=== PATIENT | male | born 1945 | race Caucasian/White ===

== ENCOUNTER 2017-11-02 21:41 | Emergency (ER) | payer MEDICARE, OTHER, SELFPAY ==
[2017-11-02 21:42] VITALS: BP 132/88; PULSE 66; RESP 14; TEMP 36.8; O2SAT 97; BMI 30.5
--- NOTE | 2017-11-02 22:41 | ED.VISSUMM ---
- ER Visit Summary Date of Service: 11/02/17 Chief Complaint: Right hip pain History of Present Illness: The patient is a 72 M who complains of right hip and groin pain. He has noted prior similar symptoms intermittently over the past 10 months. He describes a pinching or sharp pain in his right groin. His pain has been more constant over the past 5 hours. He took a Vicodin a couple of hours prior to presentation but has only had minimal relief. He required a wheelchair to get into the emergency department today. He currently rates his pain as 9 out of 10. It is worsened with movement. History of recent fall trauma or injury. He has no other complaints and no other recent illness. Physical Examination: Afebrile vitals are stable Heart regular rate and rhythm Lungs are clear Abdomen soft, nontender to palpation No back or flank tenderness Patient has no focal tenderness on palpation of the hip however he has significant pain with attempted internal rotation he is able to flex with some discomfort he has brisk capillary refill distally and normal sensation normal motor function distally Test Results: Right hip and pelvis x-rays show no fracture, mild degenerative changes Emergency Department Course and Treatment: She was treated with intramuscular Toradol and has had significant improvement on reevaluation. He was able to ambulate. He was advised to use anti-inflammatories at home and also has hydrocodone at home if needed for breakthrough pain. I did advise that he call his primary care physician for further outpatient follow-up. I explained of the possible need for further outpatient workup such as MRI. He understands return for new or worsening symptoms. All questions answered bedside. Patient family comfortable to plan and the patient was discharged. Treatment Plan: [] Disposition: Discharge Impression: Right groin pain This note was generated with [employer] dictation software. It may contain incorrect words, spelling, and punctuation that were not noted in review of the chart prior to signing ED Disposition - Plan for ED Patient: Chief Complaint: Lower Extremity Injury Referrals: Sudhir Carcamo MD [Primary Care Provider] -
--- NOTE | 2017-11-02 22:55 | RAD_ITS ---
STUDY: X-RAY - PELVIS AND RIGHT HIP REASON FOR EXAM: Male, 72 years old. Pain TECHNIQUE: Radiological exam, hip, unilateral, with pelvis when performed; 2 or 3 views. COMPARISON: None. FINDINGS: There is a non-specific bowel gas pattern. Normal visualized soft tissue structures. Normal bilateral iliac wings, sacroiliac joints and visualized sacrum. Normal bilateral superior and inferior pubic rami. Normal pubic symphysis. Normal bilateral ischial tuberosities. There are osteoarthritic changes of the femoral head with marginal osteophyte formation. There is osteoarthritic spur formation of the acetabular rim. There is mild articular joint space narrowing of the hip. RAD/Hip 2-3 Views with Pelvis IMPRESSION: Mild degenerative changes. No fracture. Electronically Signed: Arnulfo Mccloud DO at 23:20 EDT , Service support ,
[2017-11-02] MEDS: Ketorolac 60 MG/2 ML Vial IM (23:03)
--- NOTE | 2017-11-03 00:02 | ED.DEP ---
ED Disposition - Plan for ED Patient: Chief Complaint: Lower Extremity Injury Instructions: ED Strain Groin Referrals: Sudhir Carcamo MD [Primary Care Provider] -
[2017-11-03 00:14] VITALS: BP 129/74; PULSE 79; RESP 16; O2SAT 98
== END 2017-11-03 00:15 | disposition home or self-care (01) ==
LOC: ED 22:46
PROVIDERS: Emergency Provider Emergency Medicine; Family Provider Family Medicine; PCP Family Medicine
DX: R10.31 Right lower quadrant pain (principal); K21.9 Gastro-esophageal reflux disease without esophagitis; G47.33 Obstructive sleep apnea (adult) (pediatric); F32.9 Major depressive disorder, single episode, unspecified; Z79.899 Other long term (current) drug therapy
CPT/HCPCS: 73502; 96372; 99282

== ENCOUNTER → 2018-01-28 08:48 | Outpatient (CLI) | payer MEDICARE, OTHER, SELFPAY ==
[2018-01-28 10:39] LABS: ALB/GLOB Ratio 0.9 RATIO (0.9-2.4); AST(SGOT) 30 U/L (15-37); Alanine Aminotransfer ALT/SGPT 37 U/L (16-61); Albumin, Serum 3.8 g/dL (3.2-5.0); Alkaline Phosphatase 71 U/L (45-117); Anion Gap 8 (5-15); BUN 15 mg/dL (7-18); BUN/Creat Ratio 10.2 RATIO (10-20); Calcium,Total 8.7 mg/dL (8.5-10.1); Chloride 106 mmol/L (98-107); Cholesterol 204 mg/dL (200); Creatinine, Serum 1.47 mg/dL (0.70-1.30); EST Glomerular Filtration Rate 50 mL/min (>60); Est Glom Filt Rate - Afr Amer 61 mL/min (>60); Globulin 4.1 g/dL (2.2-4.2); Glucose 93 mg/dL (74-106); High Density Lipoprotein 38 mg/dL; Potassium 4.1 mmol/L (3.5-5.1); Protein, Total 7.9 g/dL (6.4-8.2); Sodium Level 143 mmol/L (136-145); Thyroid Stim Hormone (TSH) 1.65 uIU/mL (0.358-3.74); Triglycerides 295 mg/dL; Uric Acid 7.6 mg/dL (3.5-7.2); Very Low Density Lipoprotein 59 mg/dL (5-40)
[2018-01-28 12:16] LABS: Absolute Lymphocyte Count 1.91 X10^3/ul (0.83-4.51); Absolute Neutrophil Count 4.1 X10^3/uL (2.0-7.7); Basophil# 0.04 X10^3/uL; Basophil% 0.6 % (0-1); Eosinophil# 0.07 X10^3/uL; Eosinophils% 1.1 % (0-5); Hematocrit 44.8 % (40-54); Hemoglobin 15.4 g/dl (13.0-16.5); Lymphocyte # 1.91 X10^3/ul (4.0); Lymphocyte % 28.7 % (19-41); Mean Corp Hgb Conc 34.4 g/gl (32-36); Mean Corpuscular Hgb 32.6 pg (27.0-32.0); Mean Corpuscular Volume 94.7 fL (80-94); Mean Platelet Vol. 10.8 fl (6.2-12.0); Monocyte# 0.55 X10^3/uL; Monocyte% 8.3 % (0-10); Neutrophil # 4.07 X10^3/uL (2.7-7.7); Neutrophil % 61.1 % (47-70); Platelet Count 217 K/mm3 (150-450); RBC Distribution Width SD 43.6 fl (35.1-43.9); Red Blood Count 4.73 M/mm3 (4.6-6.2); White Blood Count 6.7 K/mm3 (4.4-11.0)
[2018-01-28 12:20] LABS: POSITIVE COUNT NO; POSITIVE DIFFERENTIAL NO; POSITIVE MORPHOLOGY NO
[2018-01-29 08:25] LABS: Vitamin B12 689 pg/mL (211-911)
== END ==
PROVIDERS: Family Provider Family Medicine; PCP Family Medicine; Visit Provider Family Medicine
DX: M10.9 Gout, unspecified (principal); N18.3 Chronic kidney disease, stage 3 (moderate); F41.8 Other specified anxiety disorders; E53.8 Deficiency of other specified B group vitamins; E78.5 Hyperlipidemia, unspecified
CPT/HCPCS: 36415; 80053; 80061; 82607; 84443; 84550; 85025

== ENCOUNTER → 2018-05-17 13:55 | Outpatient (CLI) | payer MEDICARE, OTHER, SELFPAY ==
--- NOTE | 2018-05-17 13:55 | CYST_PTH ---
PATIENT: KADIE PRADHAN LOC: ANGI U#:[id number] AGE/SX: 80/M ROOM: RE05/17/[address]: Dr. Tayler Patel MD : [id number] BED: DIS: SPEC #: [id number] RECD: 05/17/18 18:16 STATUS: KEZIA REParvin #: [id number] OTTO: 05/17/18 13:[address]: Tayler Patel DEPT: SURGICAL PATHOLOGY RECD BY: Sina Robertson ENTERED: 05/18/18 13:49 SP TYPE: Cyst OTHR DR: Dr. Sudhir Carcamo MD Tissues: Back, NOS Procedures: Surgery Specimen Level III HEADER OPERATION: Excision of cyst on back PRE-OP DIAGNOSIS: Cyst on back TISSUE SUBMITTED: Cyst on back MICROSCOPIC DIAGNOSIS Cyst on back, biopsy: Skin and underlying tissue with chronic inflammation and foreign body giant cell reaction, changes consistent with ruptured epidermal inclusion cyst. SJ:vaibhav 05/19/18 MICROSCOPIC DESCRIPTION Slides are reviewed. GROSS DESCRIPTION Received in fixative is one container labeled with the patient's name and designated cyst on back. The specimen consists of multiple pieces of hernández soft tissue that in aggregate measure 3 x 1 x 0.6 cm. One of the pieces also shows a piece of skin measuring 1.5 x 0.4 cm. The largest piece with skin is bisected. The entire specimen is submitted in one cassette. / PETE:vaibhav 05/18/18 TC:5 [facility]: [id number]
== END ==
PROVIDERS: Family Provider Family Medicine; PCP Family Medicine; Referring Provider Surgery; Visit Provider Surgery
DX: L72.9 Follicular cyst of the skin and subcutaneous tissue, unspecified (principal)
CPT/HCPCS: 88304

== ENCOUNTER → 2018-06-11 09:35 | Outpatient (CLI) | payer MEDICARE, OTHER, SELFPAY ==
--- NOTE | 2018-06-11 09:40 | RAD_ITS ---
STUDY: X-RAY - PELVIS AND RIGHT HIP REASON FOR EXAM: Male, 73 years old. Right groin pain for 2 days TECHNIQUE: Radiological exam, hip, unilateral, with pelvis when performed; 2 or 3 views. COMPARISON: January 02, 2018 right hip x-ray FINDINGS: There is a non-specific bowel gas pattern. Normal visualized soft tissue structures. There is visualized degenerative changes in the lumbar spine. There is nonspecific enthesopathy of the iliac crest. There is narrowing with cortical sclerosis and osteophyte formation of the sacroiliac joint consistent with degenerative osteoarthritic changes. Normal bilateral superior and inferior pubic rami. Normal pubic symphysis. Normal bilateral ischial tuberosities. There is minimal bilateral acetabular spurring. There is mild to moderate narrowing of the bilateral hip joints. RAD/HIP, UNI W/ Pelvis 2-3 Views IMPRESSION: Degenerative change. Stable since prior study. Electronically Signed: iLliana Clemens MD at 16:52 EDT Tel , Service support ,
== END ==
PROVIDERS: Family Provider Family Medicine; PCP Family Medicine; Referring Provider Family Medicine; Visit Provider Family Medicine
DX: M25.551 Pain in right hip (principal)
CPT/HCPCS: 73502

== ENCOUNTER → 2019-01-31 | Outpatient (CLI) | payer MEDICARE, OTHER, SELFPAY ==
[2019-01-31 12:15] LABS: Absolute Lymphocyte Count 2.09 X10^3/ul (0.83-4.51); Absolute Neutrophil Count 3.6 X10^3/uL (2.0-7.7); Basophil# 0.04 X10^3/uL; Basophil% 0.6 % (0-1); Eosinophils% 1.6 % (0-5); Hematocrit 45.5 % (40-54); Hemoglobin 15.5 g/dl (13.0-16.5); Lymphocyte # 2.09 X10^3/ul (4.0); Lymphocyte % 32.9 % (19-41); Mean Corp Hgb Conc 34.1 g/gl (32-36); Mean Corpuscular Hgb 32.3 pg (27.0-32.0); Mean Corpuscular Volume 94.8 fL (80-94); Mean Platelet Vol. 10.8 fl (6.2-12.0); Monocyte# 0.55 X10^3/uL; Monocyte% 8.7 % (0-10); Neutrophil # 3.55 X10^3/uL (2.7-7.7); Neutrophil % 55.9 % (47-70); Platelet Count 198 K/mm3 (150-450); RBC Distribution Width CV 13.4 % (11.6-14.6); RBC Distribution Width SD 46.1 fl (35.1-43.9); White Blood Count 6.4 K/mm3 (4.4-11.0)
[2019-01-31 12:23] LABS: POSITIVE COUNT NO; POSITIVE DIFFERENTIAL NO; POSITIVE MORPHOLOGY NO
[2019-01-31 13:00] LABS: Vitamin B12 550 pg/mL (211-911); Vitamin D,25 Hydroxy 26.4 ng/mL (29.95-100.01)
[2019-01-31 13:08] LABS: ALB/GLOB Ratio 0.9 RATIO (0.9-2.4); AST(SGOT) 27 U/L (15-37); Alanine Aminotransfer ALT/SGPT 37 U/L (16-61); Albumin, Serum 3.7 g/dL (3.2-5.0); Alkaline Phosphatase 81 U/L (45-117); Anion Gap 11 (5-15); BUN 13 mg/dL (7-18); BUN/Creat Ratio 9.8 RATIO (10-20); Calcium,Total 8.3 mg/dL (8.5-10.1); Chloride 104 mmol/L (98-107); Cholesterol 203 mg/dL (200); Creatinine, Serum 1.33 mg/dL (0.70-1.30); EST Glomerular Filtration Rate 56 mL/min (>60); Est Glom Filt Rate - Afr Amer 68 mL/min (>60); Globulin 4.1 g/dL (2.2-4.2); Glucose 81 mg/dL (74-106); High Density Lipoprotein 40 mg/dL; Potassium 3.8 mmol/L (3.5-5.1); Protein, Total 7.8 g/dL (6.4-8.2); Sodium Level 142 mmol/L (136-145); Thyroid Stim Hormone (TSH) 2.26 uIU/mL (0.358-3.74); Triglycerides 289 mg/dL; Uric Acid 7.8 mg/dL (3.5-7.2); Very Low Density Lipoprotein 58 mg/dL (5-40)
== END | disposition home or self-care (01) ==
PROVIDERS: Family Provider Family Medicine; PCP Family Medicine; Visit Provider Family Medicine
DX: M10.9 Gout, unspecified (principal); E53.8 Deficiency of other specified B group vitamins; N18.3 Chronic kidney disease, stage 3 (moderate)
CPT/HCPCS: 36415; 80053; 80061; 82306; 82607; 84443; 84550; 85025

== ENCOUNTER → 2019-02-18 | Outpatient (CLI) | payer MEDICARE, OTHER, SELFPAY ==
--- NOTE | 2019-02-18 14:43 | RAD_ITS ---
STUDY: X-RAY - LEFT SHOULDER REASON FOR EXAM: Male, 73 years old. Pain radiating pain TECHNIQUE: 4 view(s) of the shoulder. COMPARISON: None. FINDINGS: There is mild degenerative arthrosis of the glenohumeral articulation. There is degenerative arthrosis of the acromioclavicular joint without inferior osseous spur formation. Normal acromion. Normal humeral head and visualized proximal humerus. The soft tissue structures are unremarkable. There is a partially visualized tortuous aorta. RAD/Shoulder min 2 Views IMPRESSION: Degenerative change. No visualized acute fracture. Electronically Signed: Liliana Clemens MD at 22:33 EDT Tel , Service support ,
--- NOTE | 2019-02-18 14:43 | RAD_ITS ---
STUDY: X-RAY - CERVICAL SPINE REASON FOR EXAM: Male, 73 years old. Neck pain radiating to left shoulder and arm, numbness and tingling. No known injury. TECHNIQUE: 5 view(s) of the cervical spine were obtained. COMPARISON: None FINDINGS: There are degenerative changes of the anterior atlantoaxial articulation. Normal odontoid process. There is mild reversal of the normal cervical lordosis. There is multi-level endplate spondylosis, with posterior endplate osteophytes most prominent at C5-6 and C6-7. There is multi-level degenerative disc disease with multilevel disc space narrowing, most prominent at C5-6. There is hypertrophic degenerative arthroses of the cervical facet joints. Irbx-bs-uitoymuy osseous encroachment on the C5-6 intervertebral neural foramina. The prevertebral soft tissue structures are unremarkable. Incidental note of degenerative ossification in the nuchal ligament at the level C4-5 spinous processes. There is no demonstrated osseous destructive process or fracture of the cervical spine. RAD/Cerv Spine 4 or 5 Views IMPRESSION: Multilevel degenerative changes of the visualized cervical spine, as described. Electronically Signed: Russell Kay MD at 15:39 EDT , Service support ,
== END | disposition home or self-care (01) ==
PROVIDERS: Family Provider Family Medicine; PCP Family Medicine; Referring Provider Family Medicine; Visit Provider Family Medicine
DX: M54.12 Radiculopathy, cervical region (principal); M25.512 Pain in left shoulder
CPT/HCPCS: 72050; 73030

== ENCOUNTER → 2019-12-13 15:22 | Outpatient (CLI) | payer MEDICARE, OTHER, SELFPAY ==
--- NOTE | 2019-12-13 16:00 | MRI_ITS ---
STUDY: MRI LUMBAR SPINE WITHOUT CONTRAST REASON FOR EXAM: Male, 74 years old. LOW BACK PAIN, RT SI JOINT PAIN TECHNIQUE: Standardized fat and water weighted pulse sequences were obtained in the sagittal and axial planes. COMPARISON: None FINDINGS: T12-L1: Normal endplates. Normal disc height, hydration and morphology. Normal bilateral facet joints. Normal central canal and bilateral lateral recesses. Normal bilateral intervertebral neural foramina. Normal lumbar lordosis. There is no substantial scoliosis. Normal conus medullaris that terminates at L1 L1-2: Normal endplates. Normal disc height, desiccation and minor annular bulge. Normal bilateral facet joints. Normal central canal and bilateral lateral recesses. Normal bilateral intervertebral neural foramina. L2-3: Small Schmorl''s node with intramedullary bone marrow edema involving the superior endplate of L3. Normal disc height, desiccation and mild bulging disc osteophyte complex. Bilateral facet arthropathy and thickening of ligamenta flava... Normal central canal and bilateral lateral recesses. Moderate bilateral neuroforaminal stenosis L3-4: Normal endplates. Normal disc height, desiccation and minor annular bulge.. Bilateral facet arthropathy.. Normal central canal. Moderate bilateral recess and neuroforaminal stenosis exaggerated by shortened pedicles. L4-5: Normal endplates. Normal disc height, desiccation and minimal annular bulge with prominent left foraminal disc protrusion. Facet arthropathy and thickening of ligamenta flava.. Normal central canal and bilateral lateral recesses. Moderate right neuroforaminal stenosis and severe narrowing on the left exaggerated by shortened pedicles L5-S1: Degenerative endplate changes.. Normal disc height, desiccation and minor bulging disc osteophyte complex.. Bilateral facet arthropathy.. Normal central canal and bilateral lateral recesses. Moderate bilateral neuroforaminal stenosis exaggerated by shortened pedicles Normal visualized sacral ala. Normal visualized paraspinous soft tissue structures. MRI/Spine Lumbar (Routine) IMPRESSION: No evidence for acute fracture or other significant bony pathology.. Multilevel disc degeneration and spinal stenosis secondary to disc disease and bony hypertrophy most severe at L4-5 and L5-S1 exaggerated by shortened pedicles Electronically Signed: Sd Kimble MD at 16:25 EDT , Service support ,
== END ==
PROVIDERS: PCP Family Medicine; Referring Provider Anesthesiology Pain Medicine; Visit Provider Anesthesiology Pain Medicine
DX: M51.17 Intervertebral disc disorders with radiculopathy, lumbosacral region (principal)
CPT/HCPCS: 72148

== ENCOUNTER → 2020-02-23 08:58 | Outpatient (CLI) | payer MEDICARE, OTHER, SELFPAY ==
[2020-02-23 12:52] LABS: Absolute Lymphocyte Count 1.76 X10^3/uL (0.83-4.51); Absolute Neutrophil Count 3.8 X10^3/uL (2.0-7.7); Basophil# 0.05 X10^3/uL; Basophil% 0.8 % (0-1); Eosinophil# 0.08 X10^3/uL; Eosinophils% 1.3 % (0-5); Hemoglobin 14.9 g/dL (13.0-16.5); Lymphocyte # 1.76 X10^3/ul (4.0); Lymphocyte % 28.9 % (19-41); Mean Corp Hgb Conc 33.1 g/dL (32-36); Mean Corpuscular Hgb 31.8 pg (27.0-32.0); Mean Corpuscular Volume 96.2 fL (80-94); Monocyte# 0.45 X10^3/uL; Monocyte% 7.4 % (0-10); NRBC Flagged by Analyzer 0 % (0-5); Neutrophil # 3.75 X10^3/uL (2.7-7.7); Neutrophil % 61.4 % (47-70); Platelet Count 218 K/mm3 (150-450); RBC Distribution Width CV 13.2 % (11.6-14.6); Red Blood Count 4.68 M/mm3 (4.6-6.2); White Blood Count 6.1 K/mm3 (4.4-11.0)
[2020-02-23 13:14] LABS: AST(SGOT) 22 U/L (15-37); Alanine Aminotransfer ALT/SGPT 31 U/L (16-61); Albumin, Serum 3.9 g/dL (3.2-5.0); Alkaline Phosphatase 74 U/L (45-117); Anion Gap 7 (5-15); BUN 12 mg/dL (7-18); Calcium,Total 8.8 mg/dL (8.5-10.1); Chloride 105 mmol/L (98-107); Cholesterol 158 mg/dL (200); EST Glomerular Filtration Rate 49 mL/min (>60); Est Glom Filt Rate - Afr Amer 59 mL/min (>60); Globulin 3.8 g/dL (2.2-4.2); Glucose 88 mg/dL (74-106); High Density Lipoprotein 32 mg/dL; Potassium 4.2 mmol/L (3.5-5.1); Protein, Total 7.7 g/dL (6.4-8.2); Sodium Level 141 mmol/L (136-145); Triglycerides 210 mg/dL; Very Low Density Lipoprotein 42 mg/dL (5-40)
[2020-02-23 13:20] LABS: Vitamin B12 410 pg/mL (211-911); Vitamin D,25 Hydroxy 84.4 ng/mL
== END ==
PROVIDERS: PCP Family Medicine; Visit Provider Family Medicine
DX: E53.8 Deficiency of other specified B group vitamins (principal); N18.3 Chronic kidney disease, stage 3 (moderate); M10.9 Gout, unspecified
CPT/HCPCS: 36415; 80053; 80061; 82306; 82607; 84550; 85025

== ENCOUNTER 2020-05-30 19:52 | Observation (INO) | payer MEDICARE, OTHER, SELFPAY ==
[2020-05-30] VITALS (7 sets, daily range): BP systolic 121–158; BP diastolic 70–90; PULSE 53–63; RESP 13–18; TEMP 36.3–36.8; O2SAT 96–98; BMI 28.9; BMI 28.3
--- NOTE | 2020-05-30 20:00 | ED.DCSUM_ITS ---
History of Present Illness Chief Complaint: Chest Pain Onset: Today Narrative: 75-year-old male with past medical history of GERD and BPH presents with concern for chest pain. States it is left-sided. Describes it as aching. No relieving or worsening factors. States that he woke up this morning with an approximately 12 hours ago. States it is been intermittent. Denies any shortness of breath, nausea, vomiting, diaphoresis. Denies any fever, chills, cough. No history of PCI or stress testing. Patient not a smoker. Past Medical History - Allergies and Home Meds Allergies/Adverse Reactions: Allergies meperidine HCl [From Demerol] Allergy (Verified 05/30/20 19:57) Anaphylaxis Past Medical History: - - BPH and GERD Lives: Spouse/ Significant Other Smoking Status: Never smoker Alcohol: None Drugs: None Review of Systems General: Denies: Chills, Fever, Sweats Eyes: Denies: Visual changes - bilaterally, Diplopia ENT: Denies: Rhinorrhea, Sore throat Cardiovascular: Reports: Chest pain. Denies: Palpitations Respiratory: Denies: Dyspnea, Cough, Dyspnea on exertion Gastrointestinal: Denies: Abdominal pain, Nausea, Vomiting, Diarrhea, Melena, Hematochezia Genitourinary: Denies: Dysuria, Hematuria, Frequency Musculoskeletal: Denies: Back pain, Extremity Pain Skin: Denies: Rash, Wounds Neurological: Denies: Headache, Weakness, Numbness Physical Exam Vital Signs/Narrative: Vital Signs Temp Pulse Resp BP Pulse Ox 05/30/20 19:52 97.3 F L 60 16 158/90 H 97 Inital Vital Signs reviewed: Yes General: Well nourished, Well developed, No Acute Distress Head: Normocephalic, Atraumatic Eyes: Perrl, EOMI ENT: Moist mucous membranes, No rhinorrhea Neck: Supple, Nontender Cardiovascular: Regular rate, Regular rhythm, No murmurs Respiratory: No distress, CTA bilaterally, Chest nontender Abdomen: Soft, Nontender, Nondistended, Normal bowel sounds Back: Nontender, Normal Inspection Extremities: Nontender, No edema Skin: Normal color, No rash Neurological: Alert, Oriented x3, Cranial nerves II-XII grossly intact, Normal Strength, Normal Sensation Psychological: Normal affect, Normal Mood Diagnostic/Tx/Re-eval Chest X-Ray - ED: 1 View, Normal Clinical Impression(s) from Imaging Studies Chest X-Ray 05/30/20 20:14 IMPRESSION: Normal x-ray examination of the chest. Electronically Signed: Romero Beard MD at 20:27 EDT Tel , Service support , Laboratory Data 05/30/20 05/30/20 19:53 19:53 WBC 6.9 RBC 4.69 Hgb 15.1 Hct 44.5 MCV 94.9 H MCH 32.2 H MCHC 33.9 RDW Std Deviation 43.0 RDW Coeff of Jake 12.5 Plt Count 224 MPV 10.0 Immature Gran % (Auto) 0.300 Neut % (Auto) 51.9 Lymph % (Auto) 35.0 Alexander % (Auto) 9.3 Eos % (Auto) 2.6 Baso % (Auto) 0.9 Absolute Neuts (auto) 3.6 Absolute Lymphs (auto) 2.42 Nucleated RBC % 0 Sodium 142 Potassium 4.0 Chloride 107 Carbon Dioxide 28.0 Anion Gap 7 BUN 15 Creatinine 1.53 H Estim Creat Clear Calc 46.49 Est GFR (MDRD) Af Amer 58 L Est GFR (MDRD) Non-Af 48 L BUN/Creatinine Ratio 9.8 L Glucose 96 Calcium 8.7 Magnesium 2.2 Troponin I < 0.015 - Rhythm Strip Rhythm Strip: Sinus Rhythm Rate: 60 Ectopy: PVC(s) - EKG Initial EKG Interpretation: Sinus Rhythm - Normal sinus rhythm at 60 bpm. TN interval of 158 ms. QTC of [address] changes. PVC. Right bundle branch block. - Medical Decision Making Patient appears well nontoxic. Vital signs within normal limits. EKG nonischemic. Troponin negative. Chest x-ray negative. However patient did have resolution of his chest pain with 2 sublingual nitroglycerin. Patient will be admitted for further treatment and observation. Patient given aspirin. Admitted in stable condition. Impression: 1. Chest pain ED Disposition - Plan for ED Patient: Disposition: Acute Care [facility]
--- NOTE | 2020-05-30 20:01 | EKG12_ITS ---
Test Reason : AM EKG Blood Pressure : / mmHG Vent. Rate : 055 BPM Atrial Rate : 055 BPM P-R Int : 172 ms QRS Dur : 110 ms QT Int : 430 ms P-R-T Axes : 069 030 062 degrees QTc Int : 411 ms Sinus bradycardia Nonspecific T wave abnormality Abnormal ECG When compared with ECG of 30-MAY-2020 22:05, MANUAL COMPARISON REQUIRED, DATA IS UNCONFIRMED Confirmed by MORENO CUADRA, BRIDGET ([id number]), multimedia editor WICHO TADEO ([id number]) on 06/04/2020 9:03:17 A M Referred By: MARIBEL Confirmed By:BUFFY MAYER MD
[2020-05-30 20:07] LABS: Absolute Lymphocyte Count 2.42 X10^3/uL (0.83-4.51); Absolute Neutrophil Count 3.6 X10^3/uL (2.0-7.7); Basophil# 0.06 X10^3/uL; Basophil% 0.9 % (0-1); Eosinophil# 0.18 X10^3/uL; Eosinophils% 2.6 % (0-5); Hematocrit 44.5 % (40-54); Hemoglobin 15.1 g/dL (13.0-16.5); Lymphocyte # 2.42 X10^3/ul (4.0); Mean Corp Hgb Conc 33.9 g/dL (32-36); Mean Corpuscular Hgb 32.2 pg (27.0-32.0); Mean Corpuscular Volume 94.9 fL (80-94); Monocyte# 0.64 X10^3/uL; Monocyte% 9.3 % (0-10); NRBC Flagged by Analyzer 0 % (0-5); Neutrophil # 3.59 X10^3/uL (2.7-7.7); Neutrophil % 51.9 % (47-70); Platelet Count 224 K/mm3 (150-450); RBC Distribution Width CV 12.5 % (11.6-14.6); Red Blood Count 4.69 M/mm3 (4.6-6.2); White Blood Count 6.9 K/mm3 (4.4-11.0)
[2020-05-30] MEDS: Aspirin 81 MG TAB.CHEW 324 MG PO (20:10)
[2020-05-30] MEDS: Nitroglycerin SL (ED/IMG/CATH) 0.4 MG TABLET SUBLINGUAL ×2 (20:11→20:16)
--- NOTE | 2020-05-30 20:14 | RAD_ITS ---
STUDY: X-RAY CHEST REASON FOR EXAM: Male, 75 years old. CHEST PAIN AND LEFT SHOULDER PAIN TECHNIQUE: Single frontal view of the chest. COMPARISON: None. FINDINGS: The lungs are clear and expanded. There is no demonstrated pleural abnormality. Normal size heart. Normal mediastinum and whit. Normal visualized pulmonary arteries. Normal visualized aortic arch and descending thoracic aorta. Normal visualized thoracic spine. Normal visualized ribs, clavicles, and shoulders. There is no demonstrated abnormality of the visualized soft tissue structures of the upper abdomen. RAD/Chest 1 View (Portable) IMPRESSION: Normal x-ray examination of the chest. Electronically Signed: Romero Beard MD at 20:27 EDT Tel , Service support ,
[2020-05-30 20:20] LABS: Anion Gap 7 (5-15); BUN 15 mg/dL (7-18); BUN/Creat Ratio 9.8 RATIO (10-20); Calcium,Total 8.7 mg/dL (8.5-10.1); Chloride 107 mmol/L (98-107); Creatinine, Serum 1.53 mg/dL (0.70-1.30); EST Glomerular Filtration Rate 48 mL/min (>60); Est Glom Filt Rate - Afr Amer 58 mL/min (>60); Estimated Creatinine Clearance 46.49 ml/min; Glucose 96 mg/dL (74-106); Magnesium 2.2 mg/dL (1.6-2.6); Sodium Level 142 mmol/L (136-145)
--- NOTE | 2020-05-30 22:10 | EKG12_ITS ---
Test Reason : CP ADMISSION Blood Pressure : / mmHG Vent. Rate : 049 BPM Atrial Rate : 049 BPM P-R Int : 172 ms QRS Dur : 108 ms QT Int : 458 ms P-R-T Axes : 055 031 029 degrees QTc Int : 413 ms Sinus bradycardia Otherwise normal ECG When compared with ECG of 19-FEB-2015 07:58, No significant change was found Confirmed by MORENO CUADRA, BRIDGET ([id number]), editorial assistant WICHO TADEO ([id number]) on 06/04/2020 9:04:43 A M Referred By: MARIBEL Confirmed By:BUFFY MAYER MD
--- NOTE | 2020-05-30 22:27 | PCM.HP.STD ---
Problem List (1) Chest pain Status: Acute History of Present Illness Date of Admission: 05/30/20 Chief Complaint: chest pain The patient is a 75 year old M presents with left shoulder pain. Patient woke up this morning. Full of his left shoulder but also his left upper chest. Would wax and wane but later in the day, patient appeared very ashen and did not feel well. His was concerned and sent him to the emergency room. In the emergency room, patient underwent a work-up which showed no evidence of any cardiac ischemia. However, given his story, it was felt best to bring the patient in for further cardiac evaluation. Patient has never had pain like this before. [] Past Medical History Medical History: Medical History (Last Updated 05/30/20 @ 22:[address] Kun Gupta DO) BPH (benign prostatic hyperplasia) N40.0 Depression F32.9 GERD (gastroesophageal reflux disease) K21.9 Allergies meperidine HCl [From Demerol] Allergy (Verified 05/30/20 19:57) Anaphylaxis Home Medications: Ambulatory Orders Medication Instructions Recorded Cyanocobalamin [Vitamin B12] 1,000 mcg PO DAILY@0800 11/02/17 Meloxicam [Mobic] 7.5 mg PO DAILY 11/02/17 Omeprazole [Prilosec] 20 mg PO DAILY 11/02/17 Cholecalciferol (VIT D3) [Vitamin 1,000 unit PO DAILY 05/30/20 D] Tamsulosin HCl [Flomax] 0.4 mg PO DAILY 05/30/20 Surgical History: Surgical History (Last Reviewed 05/30/20 @ 22:[address] Kun Gupta DO) H/O knee surgery Z98.890 H/O rhinoplasty Z98.890 h/o carpal tunnel release Lives: Spouse/ Significant Other Smoking Status: Never smoker Alcohol: None Drugs: None - *Family History Maternal Family History: Family History (Last Reviewed 05/30/20 @ 22:[address] Kun Gupta DO) Mother Breast cancer CAD (coronary artery disease) CVA (cerebral vascular accident) Father CVA (cerebral vascular accident) Son Breast cancer Review of Systems Constitutional: Denies: Anorexia, Chills, Fever Eyes: Denies: Blurred vision, Double vision HEENT: Denies: Head Aches, Sinus Congestion, Sinus Drainage Cardiovascular: Denies: Chest Pain, Palpitations Respiratory: Denies: Cough, Shortness of breath at rest, Sputum production Gastrointestinal: Denies: Abdominal Pain, Nausea, Vomiting Genitourinary: Denies: Dysuria Musculoskeletal: Denies: Joint Pain, Joint Tenderness Hematologic/ Lymphatic: Denies: Easy Bruising, Easy Bleeding, Hx of blood clot Comment: All review of systems were negative except as mentioned above in the history of present illness and the other review of systems. VTE Information - Inpt Only VTE Present on Admission: No VTE Mechan Device Prophylaxis: None VTE Pharm Prophylaxis ordered?: No Reason prophylaxis not ordered:: Treatment Not Indicated Patient Problems: Active and Suspected Problems (Last Updated 05/30/20 @ 22:[address] Kun Gupta, DO) Chest pain (Acute) - Physical Exam Vitals/I&O's: Vital Signs Temp Pulse Resp BP Pulse Ox 36.8 C 53 L 18 121/71 H 97 05/30/20 21:56 05/30/20 21:56 05/30/20 21:56 05/30/20 21:56 05/30/20 21:56 Oxygen Delivery Method Blow-by Weight: 96.6 kg Body Mass Index (BMI) 28.3 General: Alert, Cooperative, No apparent distress HEENT: Atraumatic, Normocephalic Oral: Moist Mucosa, No Gingival or Mucosal Lesions/ Ulcerations Neck: No Nodes, Thyroid Normal Size and Texture Lungs: Clear to auscultation, Normal air movement, No rhonchi, No wheeze, No rales Cardiovascular: Regular rate, Regular Rhythm, Normal S1, Normal S2, No murmurs Abdomen: Bowel Sounds Present, Soft, Non Tender, Non-Distended, No Hepato-splenomegaly Extremities: No edema, No Calf Tenderness Skin: No rashes, No breakdown Musculoskeletal: - - Full range of motion of the left upper extremity. Empty can test was negative bilaterally. Patient able to AB duct his left upper extremity past 90 degrees. Psych/Mental Status: Normal Affect, Appropriate Laboratory Results 05/30/20 19:53: WBC 6.9, RBC 4.69, Hgb 15.1, Hct 44.5, MCV 94.9 H, MCH 32.2 H, MCHC 33.9, RDW Std Deviation 43.0, RDW Coeff of Jake 12.5, Plt Count 224, MPV 10.0, Immature Gran % (Auto) 0.300, Neut % (Auto) 51.9, Lymph % (Auto) 35.0, [place] % (Auto) 9.3, Eos % (Auto) 2.6, Baso % (Auto) 0.9, Absolute Neuts (auto) 3.6, Absolute Lymphs (auto) 2.42, Nucleated RBC % 0 05/30/20 19:53: Sodium 142, Potassium 4.0, Chloride 107, Carbon Dioxide 28.0, Anion Gap 7, BUN 15, Creatinine 1.53 H, Estim Creat Clear Calc 46.49, Est GFR (MDRD) Af Amer 58 L, Est GFR (MDRD) Non-Af 48 L, BUN/Creatinine Ratio 9.8 L, Glucose 96, Calcium 8.7, Magnesium 2.2, Troponin I < 0.015 EKG reviewed and showed normal sinus rhythm. Chest x-ray reviewed and showed normal airways without any infiltrate or pulmonary edema. Current Medications Sodium Chloride () 250 mls @ 15 mls/hr IV .[id number] PRN PRN Reason: Saline Flush Sodium Chloride () 250 mls @ 15 mls/hr IV .[id number] PRN PRN Reason: Additional IVPB Infusion Nitroglycerin (Nitroglycerin Sl (Ed/Img/Cath) 0.4 Mg Tablet) 0.4 mg SUBLINGUAL Q5M PRN PRN Reason: Chest pain Last Admin: 05/30/20 20:16 Dose: 0.4 mg Documented by: Sodium Chloride (0.9% Saline Lock 10 Ml Syringe) 10 - 40 ml IV UD PRN PRN Reason: SALINE FLUSH Assessment/Plan All Active Problems (Last Updated 05/30/20 @ 22:[address] Kun Gupta, DO) Chest pain (Acute) 1. Chest pain: AIXA score of 2. De Los Santos score of 122 which equates to an in-hospital at 1.7%. Plan is to bring the patient and perform a treadmill stress echocardiogram and follow that up. In the meantime, check troponins and continue with aspirin. Patient did receive aspirin in the emergency room. Based on the results of the stress test either patient be discharged or will have a cardiology consultation. 2. Chronic kidney disease stage III: Recommend outpatient follow-up with nephrology. Creatinine peers to be stable. 3. VTE prophylaxis: Low risk as patient is observation status at this point. 4. Advanced care planning: Discussed with the patient. Patient wished to be full CODE STATUS. OBSV E&M: [id number] Initial observation care L2
--- NOTE | 2020-05-30 22:32 | EKG12_ITS ---
Test Reason : CP Blood Pressure : / mmHG Vent. Rate : 060 BPM Atrial Rate : 060 BPM P-R Int : 158 ms QRS Dur : 106 ms QT Int : 418 ms P-R-T Axes : 067 039 049 degrees QTc Int : 418 ms Sinus rhythm with occasional Premature ventricular complexes Incomplete right bundle branch block Borderline ECG Confirmed by JEANA CUADRA, MEME ([id number]), technical editor WICHO TADEO ([id number]) on 06/05/2020 8:12:02 AM Referred By: TAMIR Confirmed By:MEME HILLS MD
[2020-05-31 03:30] VITALS: BP 127/71; PULSE 55; RESP 18; TEMP 36.4; O2SAT 96
[2020-05-31 05:14] VITALS: PULSE 49
--- NOTE | 2020-05-31 05:55 | STEWCON_ITS ---
Reason For Study: Chest Pain Stress Results Protocol: Delvin Protocol WITH DEFINITY Maximum Predicted HR: 146 bpm Target HR: 124 bpm % Maximum Predicted HR: 95 % DurationHeart Rate Stage (mm:ss) (bpm) BP Comment Baseline 49 134/70No Chest Pain; 5 ML Diluted Definity Delvin Protocol Stage I 3:00 93 150/72No Chest Pain Delvin Protocol Stage II 3:00 106 154/68No Chest Pain Delvin Protocol Stage III 3:00 134 174/62No Chest Pain; Mild Dyspnea Delvin Protocol Stage IV 0:20 139 / No Chest Pain; Mild Dyspnea Recovery 77 124/72No Chest Pain Stress Duration: 9:20 mm:ss Maximum Stress HR: 139 bpm METS: 11 Baseline Echocardiogram Findings The estimated ejection fraction is 60 %. Post stress EF is 70%. Stress Echo Wall motion Data Resting WM Intermediate WM Stress WM Resting Wall Motion Wall Motion Stress No regional wall motion No regional wall motion abnormalities noted. abnormalities noted. EKG Data The baseline ECG displays normal sinus rhythm. No significant ischemic changes. Symptoms with Stress The patient experinced no chest pain . Interpretation Summary The estimated ejection fraction is 60 %. Stress echo is negative for stress induced CP or EKG or echocardiographic changes of ischemia. Functional capacity is excellent for age Ordering Physician: Kun Gupta Referring Physician: Luke Christensen M.D. Performed By: Bonita Chu, RDCS, RVT
[2020-05-31] MEDS: Aspirin E.C. 81 MG Tablet PO (06:07)
--- NOTE | 2020-05-31 06:41 | NURSING ---
Patient called out to tell this nurse he was having chest pain. He asked for nitro. He rated the pain as he said low on the pain scale 2 or 3. States pain is like a pulled muscle feeling. Charge nurse in the room at this time explained with his stress test we cant give nitro pt verbalised understanding. Instructed to call if it gets worse. Offered Morphine pt declined.
[2020-05-31 06:52] LABS: Anion Gap 5 (5-15); BUN 16 mg/dL (7-18); BUN/Creat Ratio 12.1 RATIO (10-20); Calcium,Total 8.5 mg/dL (8.5-10.1); Chloride 108 mmol/L (98-107); Cholesterol 183 mg/dL (200); Creatinine, Serum 1.32 mg/dL (0.70-1.30); EST Glomerular Filtration Rate 56 mL/min (>60); Est Glom Filt Rate - Afr Amer 68 mL/min (>60); Estimated Creatinine Clearance 53.89 ml/min; Glucose 94 mg/dL (74-106); High Density Lipoprotein 38 mg/dL; Potassium 3.7 mmol/L (3.5-5.1); Sodium Level 139 mmol/L (136-145); Triglycerides 279 mg/dL; Very Low Density Lipoprotein 56 mg/dL (5-40)
[2020-05-31 08:56] VITALS: PULSE 55
[2020-05-31 10:16] VITALS: BP 134/82; PULSE 58; RESP 18; TEMP 36.8; O2SAT 98
[2020-05-31 14:59] VITALS: PULSE 58
--- NOTE | 2020-05-31 16:23 | DCINST_ITS ---
- Discharge Diagnoses Current Active Problems: Current Active and Chronic Problems (Last Updated 05/30/20 @ 22:[address] Kun Gupta, DO) Chest pain (Acute) You will use the following diet at home:: No restrictions Your food should be the consistency of: Regular Your liquids should be the consistency of: Regular/Thin Discharge Activity: Return to Normal Activity Weight Bearing Status: Full weight bearing Allergies/Adverse Reactions: Allergies meperidine HCl [From Demerol] Allergy (Verified 05/30/20 19:57) Anaphylaxis Medications to take at Discharge Cyanocobalamin [Vitamin B12] 1,000 mcg PO DAILY@0800 11/02/17 Meloxicam [Mobic] 7.5 mg PO DAILY 11/02/17 Omeprazole [Prilosec] 20 mg PO DAILY 11/02/17 Cholecalciferol (VIT D3) [Vitamin D3] 1,000 unit PO DAILY 05/30/20 Tamsulosin HCl [Flomax] 0.4 mg PO DAILY 05/30/20 Primary Care Physician: Sudhir Carcamo MD [Primary Care Provider] - Please follow up with your Primary Care Physician in: as scheduled Test Results: Test results from this visit will be discussed in further detail at your follow- up appointment, if applicable.
[2020-05-31 16:34] VITALS: BP 140/90; PULSE 59; RESP 18; TEMP 36.8; O2SAT 95
--- NOTE | 2020-06-01 08:03 | PCM.DC.SUM ---
Discharge Date and Diagnosis - Problem List Patient Problems: Active and Suspected Problems (Last Updated 05/30/20 @ 22:[address] Kun Gupta, ) Chest pain (Acute) Date of Admission: 05/30/20 Date of Discharge: 05/31/20 - Primary Discharge Diagnosis Acute Problems: Active Problems (Last Updated 05/30/20 @ 22:[address] Kun Gupta, ) #1 musculoskeletal chest pain #2 benign prostatic hypertrophy #3 GERD #4 degenerative disc disease of the lumbar spine Hospital Course and Treatment Operations: None Procedures: - - Stress echocardiogram Summary of Care Provided: The patient is a 75 year old M seen in the emergency room at [facility] with a chief complaint of left upper chest discomfort, patient had the chest discomfort for approximately 12 hours, he denied any shortness of breath or nausea. Patient had no history of coronary artery disease. Work-up in the emergency room included an EKG which showed a normal sinus rhythm at 60, troponin was negative, chest x-ray was negative. Patient was given 2 sublingual nitroglycerin which relieved his chest discomfort. Patient was placed into observation status on PCU, cardiac enzymes were cycled and these remain normal. Patient underwent a stress echocardiogram on 05/31/20 which was negative for ischemia, patient had a normal EF. On 05/31/2020, patient was seen and examined: On examination he appeared in good health and spirits. Vital signs as documented. Skin warm and dry and without overt rashes. Neck without JVD, neck was supple, trachea midline, thyroid was normal. Lungs clear bilaterally, normal air movement was noted. Heart exam notable for regular rhythm, normal sounds and absence of murmurs, rubs or gallops. Abdomen unremarkable and without evidence of organomegaly, masses, or abdominal aortic enlargement. Bowel sounds are present, abdomen is not distended. Extremities nonedematous, no cyanosis was noted, no clubbing was noted. Neuro: Cranial nerves II through XII are grossly intact, no focal motor deficits were noted, sensation to light touch and pinprick intact, motor exam 5/5 throughout. Psych: Patient is alert and oriented x3, he does not appear anxious or depressed, he does not appear agitated. Patient was discharged home in stable condition on 05/31/2020. Patient Problems: Active and Suspected Problems (Last Updated 10/14/20 @ 22:[address] Kun Gupta, DO) Chest pain (Acute) - Physical Exam Vitals/I&O's: Vital Signs Temp Pulse Resp BP Pulse Ox 98.3 F 59 L 18 140/90 H 95 05/31/20 16:34 05/31/20 16:34 05/31/20 16:34 05/31/20 16:34 05/31/20 16:34 Oxygen Delivery Method Room Air Weight: 96.6 kg Body Mass Index (BMI) 28.3 Intake and Output for Last 24 Hours 05/30/20 05/31/20 06/01/20 23:59 23:59 23:59 Intake Total 280 / 280 Balance 280 / 280 Discharge Activity: Return to Normal Activity Weight Bearing Status: Full weight bearing Home Medications: Medications to take at Discharge Cyanocobalamin [Vitamin B12] 1,000 mcg PO DAILY@0800 11/02/17 Meloxicam [Mobic] 7.5 mg PO DAILY 11/02/17 Omeprazole [Prilosec] 20 mg PO DAILY 11/02/17 Cholecalciferol (VIT D3) [Vitamin D3] 1,000 unit PO DAILY 05/30/20 Tamsulosin HCl [Flomax] 0.4 mg PO DAILY 05/30/20 Primary Care Physician: Sudhir Carcamo MD [Primary Care Provider] - Please follow up with your Primary Care Physician in: as scheduled Disposition: Home Minutes spent on discharge:: 30 Patient Condition:: Stable Medical Necessity - Tobacco Use Smoking Status: Never smoker Meaningful Use Info Meaningful Use Diagnoses (Choose all that apply): None applicable OBSV E&M: 46519 Observation care discharge
== END 2020-05-31 16:23 | disposition home or self-care (01) ==
LOC: ED 20:25 → PCU 22:29
PROVIDERS: Emergency Provider Emergency Medicine; PCP Family Medicine; Visit Provider Internal Medicine
DX: R07.89 Other chest pain (principal); K21.9 Gastro-esophageal reflux disease without esophagitis; N40.0 Benign prostatic hyperplasia without lower urinary tract symptoms; Z79.899 Other long term (current) drug therapy; M25.512 Pain in left shoulder; N18.30 Chronic kidney disease, stage 3 unspecified; M51.36 Other intervertebral disc degeneration, lumbar region
CPT/HCPCS: 36415; 71045; 80048; 80061; 83735; 84484; 85025; 93005; 93017; 93350; 94760; 99218; 99283; 99285; Q9957; A4216; C8928; G0378

== ENCOUNTER → 2020-07-11 17:36 | Outpatient (CLI) | payer MEDICARE, OTHER, SELFPAY ==
[2020-05-30 21:44] VITALS: BMI 28.3
== END ==
PROVIDERS: PCP Family Medicine; Referring Provider Family Medicine; Visit Provider Family Medicine
DX: Z03.818 Encounter for observation for suspected exposure to other biological agents ruled out (principal)
CPT/HCPCS: 87635; C9803; U0003

== ENCOUNTER → 2020-08-01 13:20 | Outpatient (CLI) | payer MEDICARE, OTHER, SELFPAY ==
[2020-05-30 21:44] VITALS: BMI 28.3
[2020-08-01 15:26] LABS: Absolute Lymphocyte Count 1.91 X10^3/uL (0.83-4.51); Basophil# 0.05 X10^3/uL; Basophil% 0.7 % (0-1); Eosinophil# 0.16 X10^3/uL; Eosinophils% 2.4 % (0-5); Hemoglobin 15.4 g/dL (13.0-16.5); Lymphocyte # 1.91 X10^3/ul (4.0); Lymphocyte % 28.4 % (19-41); Mean Corp Hgb Conc 32.8 g/dL (32-36); Mean Corpuscular Hgb 30.9 pg (27.0-32.0); Mean Corpuscular Volume 94.4 fL (80-94); Mean Platelet Vol. 10.4 fl (6.2-12.0); Monocyte# 0.59 X10^3/uL; Monocyte% 8.8 % (0-10); NRBC Flagged by Analyzer 0 % (0-5); Neutrophil # 3.97 X10^3/uL (2.7-7.7); Neutrophil % 59.1 % (47-70); Platelet Count 202 K/mm3 (150-450); RBC Distribution Width CV 12.4 % (11.6-14.6); Red Blood Count 4.98 M/mm3 (4.6-6.2); White Blood Count 6.7 K/mm3 (4.4-11.0)
[2020-08-01 15:44] LABS: ALB/GLOB Ratio 1.1 RATIO (0.9-2.4); AST(SGOT) 17 U/L (15-37); Alanine Aminotransfer ALT/SGPT 31 U/L (16-61); Alkaline Phosphatase 80 U/L (45-117); Anion Gap 4 (5-15); BUN 14 mg/dL (7-18); BUN/Creat Ratio 9.7 RATIO (10-20); Calcium,Total 8.9 mg/dL (8.5-10.1); Chloride 104 mmol/L (98-107); Creatinine, Serum 1.45 mg/dL (0.70-1.30); EST Glomerular Filtration Rate 51 mL/min (>60); Est Glom Filt Rate - Afr Amer 61 mL/min (>60); Globulin 3.8 g/dL (2.2-4.2); Glucose 82 mg/dL (74-106); Potassium 4.2 mmol/L (3.5-5.1); Protein, Total 7.8 g/dL (6.4-8.2); Sodium Level 138 mmol/L (136-145); T4 Free Direct 1.06 ng/dL (0.76-1.46); Thyroid Stim Hormone (TSH) 1.88 uIU/mL (0.358-3.74)
[2020-08-01 15:59] LABS: Vitamin B12 1323 pg/mL (211-911); Vitamin D,25 Hydroxy 57.6 ng/mL
== END ==
PROVIDERS: PCP Family Medicine; Visit Provider Family Medicine
DX: E53.8 Deficiency of other specified B group vitamins (principal); R53.83 Other fatigue; E55.9 Vitamin D deficiency, unspecified; N18.30 Chronic kidney disease, stage 3 unspecified
CPT/HCPCS: 36415; 80053; 82306; 82607; 84439; 84443; 85025

== ENCOUNTER → 2021-06-03 | Outpatient (CLI) | payer MEDICARE, OTHER, SELFPAY | END | disposition home or self-care (01) | LOC: LABSPEC 06-04 09:04 | PROVIDERS: PCP Family Medicine; Referring Provider Family Medicine; Visit Provider Family Medicine | DX: Z20.828 Contact with and (suspected) exposure to other viral communicable diseases (principal) | CPT/HCPCS: 87635; U0005; U0003 ==

== ENCOUNTER 2021-08-30 13:10 | Outpatient (CLI) | payer MEDICARE, OTHER, SELFPAY ==
--- NOTE | 2021-08-30 13:45 | MRI_ITS ---
STUDY: MRI RIGHT KNEE REASON FOR EXAM: Male, 76 years old. Right knee pain TECHNIQUE: Standardized fat and water weighted pulse sequences were obtained in all 3 orthogonal planes. COMPARISON: None. FINDINGS: High-grade intrasubstance degenerative and horizontal tearing is present in the body of the medial meniscus and throughout the posterior horn of medial meniscus. Normal anterior horn. There is diffuse, less than 50% thickness articular cartilage loss of the medial femorotibial compartment. Normal medial femoral condyle and tibial plateau. A lobular ganglion cyst originating from the posterior aspect of the medial femoral condyle is partially herniated through the joint capsule resulting in a small component of the ganglion cyst measuring 1.91 cm abutting the anterior aspect of the medial gastrocnemius muscle. Normal medial collateral ligamentous complex (MCL). Normal distal semimembranosus, gracilis and semitendinosus tendons. There is mild intra-substance myxoid degeneration of the posterior horn of the lateral meniscus, but without a demonstrated meniscal tear. Normal anterior horn and body of the lateral meniscus. Normal hyaline cartilage of the lateral femorotibial compartment. Normal lateral femoral condyle and tibial plateau. Normal proximal tibiofibular articulation. Normal lateral collateral (fibular) ligament. Normal popliteus tendon. Normal biceps femoris tendon. Normal anterior cruciate ligament (ACL). Normal posterior cruciate ligament (PCL). Normal congruent patellofemoral articulation. Normal hyaline cartilage of the patellofemoral compartment. Normal medial and lateral patellar retinaculum. Normal quadriceps tendon. Normal patellar tendon. Normal Hoffa''s fat pad. A small joint effusion is present. The soft tissues are unremarkable. The otherwise visualized osseous structures are unremarkable. MRI/Lower Ext Joint Only (Routine) IMPRESSION: 1. Diffuse degenerative horizontal tearing of the body and posterior horn of the medial meniscus 2. Intrasubstance degeneration the posterior horn of lateral meniscus 3. Small joint effusion 4. Ganglion cyst of the posterior intercondylar region/medial femoral condyle region slightly herniating through the joint capsule and abutting the anterior surface of the medial gastrocnemius muscle. Electronically Signed: Clark Wall MD at 16:35 EST , Service support ,
== END 2021-08-30 23:59 | disposition short-term general hospital (02) ==
LOC: MRI 13:11
PROVIDERS: PCP Family Medicine; Referring Provider Physician Assistant Surgical; Visit Provider Physician Assistant Surgical
DX: M25.561 Pain in right knee (principal)
CPT/HCPCS: 73721

== ENCOUNTER 2022-09-24 15:51 | Emergency (ER) | payer MEDICARE, OTHER, SELFPAY ==
[2022-09-24 15:52] VITALS: BP 162/85; PULSE 82; RESP 22; TEMP 36.6; O2SAT 94; BMI 29.1
--- NOTE | 2022-09-24 15:54 | RAD_ITS ---
INDICATION: trauma EXAMINATION/TECHNIQUE: X-RAY - RIGHT XR Wrist Min 3 Views 3 VIEWS COMPARISON: None. FINDINGS: SOFT TISSUES: No soft tissue swelling or gas. No radiopaque foreign body. BONES/JOINTS: Minimally displaced fracture distal diaphysis of the ulna. Overall alignment near anatomic. Included joint spaces anatomically maintained. No sclerotic or destructive changes observed. RAD/Wrist min 3 Views IMPRESSION: Fracture distal ulna. Electronically Signed: Cristian Plascencia MD at 16:24 EST ,
--- NOTE | 2022-09-24 16:04 | RAD_ITS ---
INDICATION: Trauma, forearm injury EXAMINATION/TECHNIQUE: X-RAY - RIGHT XR Forearm 2 Views 2 VIEWS COMPARISON: Right wrist series same date FINDINGS: SOFT TISSUES: No soft tissue swelling or gas. No radiopaque foreign body. BONES/JOINTS: Redemonstration mildly displaced fracture distal ulna. Overall alignment near anatomic. Joint spaces anatomically maintained. No sclerotic or destructive changes observed. RAD/Forearm 2 Views IMPRESSION: Fracture of the distal ulna. Electronically Signed: Cristian Plascencia MD at 16:26 EST ,
--- NOTE | 2022-09-24 18:09 | EX.ED.UPPERE ---
HPI History of Present Illness Chief Complaint: Upper Extremity Injury Narrative Narrative: 77-year-old male, predominantly [id number], presents with injury to his right distal forearm/wrist that he sustained a few hours ago. He states he was approximately 6 feet high on an extension ladder when he was cutting 2 branches with a battery-powered chainsaw. He states that one of the limbs flipped, and hit him in the right forearm. He came down off the ladder and did not fall or hit his head. He denies other injury. He thinks he broke his forearm. He had his drive him to the hospital. He denies other injuries. [facility] Medical History BPH (benign prostatic hyperplasia) Depression GERD (gastroesophageal reflux disease) Home Medications cyanocobalamin (vitamin B-12) 500 mcg tablet 1,000 mcg PO DAILY@0800 11/02/17 [History Last Taken 05/29/20] omeprazole 20 mg capsule,delayed release 20 mg PO DAILY 11/02/17 [History Last Taken 05/29/20] cholecalciferol (vitamin D3) 25 mcg (1,000 unit) tablet 1,000 unit PO DAILY SUPPLEMENT 05/30/20 [History Last Taken 05/29/20] tamsulosin 0.4 mg capsule 0.4 mg PO DAILY 05/30/20 [History Last Taken 05/29/20] bupropion HCl 75 mg tablet 75 - 150 mg PO DAILY 09/24/22 [History Last Taken Unknown] hydrocodone-acetaminophen 5-325mg 5mg-325mg 1 tab PO Q6H PRN pain 3 days #12 tabs 09/24/22 [Rx Last Taken Unknown] Allergy/AdvReac Type Severity Reaction Status Date / Time meperidine HCl [From Demerol] Allergy Anaphylaxis Verified 09/24/22 15:52 Family History Mother Breast cancer CAD (coronary artery disease) CVA (cerebral vascular accident) Father CVA (cerebral vascular accident) Son Breast cancer Surgical History h/o carpal tunnel release H/O knee surgery H/O rhinoplasty Social History Smoking Status: Never smoker alcohol intake: current alcohol intake frequency: holidays/special occasions only ROS ROS ED ROS Narrative Constitutional: No fever, no chills. HEENT: No sore throat. No neck pain. No loss of vision. No rhinorrhea. Cardiovascular: No chest pain. No palpitations. No pedal edema. Respiratory: No cough, no shortness of breath. Abdominal: No abdominal pain. No nausea. No vomiting. Genitourinary: No dysuria. No hematuria. Musculoskeletal: No myalgias. Right forearm pain/wrist pain. Neurologic: No headaches. No dizziness. No lightheadedness. Skin: No rash. No change in color. Psychiatric: No depression. No anxiety. EXAM Physical Exam Narrative Exam Narrative: Afebrile. Vital signs noted. HEENT: Normocephalic. Atraumatic. PERRL, EOMI. Neck soft and supple. No point tenderness or step off. Cardiovascular: Regular rate and rhythm. No murmurs, rubs, or gallops appreciated. Respiratory: No tachypnea. Lungs clear to auscultation bilaterally. Gastrointestinal: Abdomen soft, nontender, with normoactive bowel sounds. No rebound or guarding. Neurological: Awake. Alert. Nonfocal, nonlateralizing. Skin: No rash. Normal color. No pallor. Musculoskeletal: No pedal edema. Full range of motion extremities. Mild tenderness to palpation distal ulna. Able to flex and extend wrist. Neurovascular intact distally. Able to oppose thumb. Able to abduct and adduct fingers. Good capillary refill. Palpable radial pulse. Uninjured at the elbow and above. Const Vital Signs: 09/24/22 15:52 Temperature 98 F Temperature Source Temporal Pulse Rate 82 Respiratory Rate 22 H Blood Pressure 162/85 H Blood Pressure Mean 110 Pulse Ox 94 Oxygen Delivery Method Room Air [facility] Lab Data Lab results narrative: RN protocol orders were entered and x-rays were obtained of the right wrist and of the right forearm. I interpreted the x-rays and on my interpretation, I see a fracture of the distal ulna. It is not intra-articular and minimally displaced if at all. At this point in time, he was given a Marshall tablet for analgesia. I discussed the patient with Dr. Calderon who is on-call for [facility] as the patient has seen Dr. Fenton for carpal tunnel syndrome/surgery. He will be splinted in the AP splint, and given a prescription for Marshall for the next 3 days. He will follow-up with orthopedics. He is to call the office tomorrow. I feel he be discharged safely home with follow-up. Return instructions to the emergency department were reviewed. He was offered a sling for comfort, but states he has 1 at home. Disposition is discharged home in stable condition. Radiography Diagnostic Testing: Clinical Impression(s) from Imaging Studies Wrist X-Ray 09/24/22 15:54 IMPRESSION: Fracture distal ulna. Electronically Signed: Cristian Plascencia MD at 16:24 EST , Forearm X-Ray 09/24/22 16:04 IMPRESSION: Fracture of the distal ulna. Electronically Signed: Cristian Plascencia MD at 16:26 EST , Procedures Upper Extremity Splints Upper Extremity Splint: Orthoglass and - (Anterior posterior using 3 inch Ortho-Glass) Splint Fabrication: Fabricated Location: Right Discharge Plan Triage Chief Complaint: Upper Extremity Injury ED Provider: Champ Patel Dx/Rx/DC Orders Clinical Impression: Distal end of ulna fracture, closed, Forearm fracture Instructions: ED Fracture, Upper Extremity Prescriptions: New hydrocodone-acetaminophen 5-325 mg tablet 1 tab PO Q6H PRN (Reason: pain) 3 Days Qty: 12 0RF No Action cyanocobalamin (vitamin B-12) 500 MCG tablet 1,000 mcg PO DAILY@0800 omeprazole 20 MG capsule 20 mg PO DAILY tamsulosin 0.4 MG capsule 0.4 mg PO DAILY Label Comments: take 1 capsule by mouth at bedtime cholecalciferol (vitamin D3) 1,000 UNIT tablet 1,000 unit PO DAILY bupropion HCl 75 mg tablet 75 - 150 mg PO DAILY Label Comments: take 1 to 2 tablets by mouth every morning Primary Care Provider: Pino Egan Referrals: Pino Egan DO [Primary Care Provider] - Jimy Fenton MD [Med Staff - Active Staff] - 3-5 Days Activity Restrictions/Additional Instructions: Call [facility] tomorrow for an appointment to be seen within the next week. Do not get your splint wet. Elevate your right arm when possible. Disposition Disposition: Home, Self Care
[2022-09-24] MEDS: HYDROcodone Bitartrate/Apap 5/325 Tablet PO (18:12)
[2022-09-24 18:49] VITALS: PULSE 82; RESP 17; O2SAT 97
== END 2022-09-24 18:50 | disposition home or self-care (01) ==
PROVIDERS: Emergency Provider Emergency Medicine; PCP Family Medicine; Visit Provider Emergency Medicine
DX: S52.601A Unspecified fracture of lower end of right ulna, initial encounter for closed fracture (principal); W20.8XXA Other cause of strike by thrown, projected or falling object, initial encounter; Y93.89 Activity, other specified; K21.9 Gastro-esophageal reflux disease without esophagitis; Z79.899 Other long term (current) drug therapy; N40.0 Benign prostatic hyperplasia without lower urinary tract symptoms
CPT/HCPCS: 29125; 73090; 73110; 99283

== ENCOUNTER 2022-09-26 23:18 | Emergency (ER) | payer MEDICARE, OTHER, SELFPAY ==
--- NOTE | 2022-09-26 00:01 | RAD_ITS ---
INDICATION: pain under cast EXAMINATION/TECHNIQUE: X-RAY - RIGHT XR Forearm 2 Views COMPARISON: Right forearm chest x-ray from 09/24/2022 FINDINGS: SOFT TISSUES: Overlying cast material present. BONES/JOINTS: Fracture distal ulnar diaphysis is nondisplaced but demonstrates subtle increased mild angulation deformity on frontal view (angulation of approximately 18 degrees, compared with 10 degrees on prior). Adequate alignment at wrist and elbow. Preservation of the joint space(s). RAD/Forearm 2 Views IMPRESSION: Mild increased angulation deformity nondisplaced fracture distal shaft right ulna. Electronically Signed: Pino Quinn MD at 0:31 EST ,
[2022-09-26 23:19] VITALS: BP 158/74; PULSE 62; RESP 18; TEMP 36.6; O2SAT 95; BMI 30.4
--- NOTE | 2022-09-27 00:55 | EX.ED.UPPERE ---
HPI History of Present Illness Chief Complaint: Upper Extremity Injury Narrative Narrative: Patient is a 77-year-old male who was seen recently secondary to injury of his right forearm and he had a distal ulnar fracture with minimal displacement. He was seen by orthopedics and placed in a cast. He states a few hours after cast placement he noticed that the area appeared to be rubbing on his forearm where the fracture was and this is causing him increased discomfort. He denies any repeat trauma numbness tingling weakness or discoloration to his fingers however with the change in pain he was concerned that the fracture had worsened and therefore comes in for evaluation [facility] Medical History BPH (benign prostatic hyperplasia) Depression GERD (gastroesophageal reflux disease) Home Medications cyanocobalamin (vitamin B-12) 500 mcg tablet 1,000 mcg PO DAILY@0800 11/02/17 [History Last Taken 05/29/20] omeprazole 20 mg capsule,delayed release 20 mg PO DAILY 11/02/17 [History Last Taken 05/29/20] cholecalciferol (vitamin D3) 25 mcg (1,000 unit) tablet 1,000 unit PO DAILY SUPPLEMENT 05/30/20 [History Last Taken 05/29/20] tamsulosin 0.4 mg capsule 0.4 mg PO DAILY 05/30/20 [History Last Taken 05/29/20] bupropion HCl 75 mg tablet 75 - 150 mg PO DAILY 09/24/22 [History Last Taken Unknown] hydrocodone-acetaminophen 5-325mg 5mg-325mg 1 tab PO Q6H PRN pain 3 days #12 tabs 09/24/22 [Rx Last Taken Unknown] Allergy/AdvReac Type Severity Reaction Status Date / Time meperidine HCl [From Demerol] Allergy Anaphylaxis Verified 09/24/22 15:52 Family History Mother Breast cancer CAD (coronary artery disease) CVA (cerebral vascular accident) Father CVA (cerebral vascular accident) Son Breast cancer Surgical History h/o carpal tunnel release H/O knee surgery H/O rhinoplasty Social History Smoking Status: Never smoker alcohol intake: current alcohol intake frequency: holidays/special occasions only ROS ROS ED Constitutional Constitutional ED: Denies chills or fever(s) ENT ENT ED: Denies sore throat Cardiovascular Cardiovascular: Denies chest pain Respiratory/Chest Respiratory/Chest: Denies cough or dyspnea Gastrointestinal Gastrointestinal: Denies abdominal pain, diarrhea, nausea or vomiting Genitourinary Genitourinary ED: Denies dysuria Musculoskeletal Musculoskeletal: Reports other Details: Positive right forearm pain Integumentary Denies rash Neurologic Neurologic: Denies headache(s) or paresthesias Hematologic/Lymphatic Hematologic/Lymphatic: Denies easy bleeding or easy bruising EXAM Physical Exam Const Vital Signs: 09/26/22 23:19 Temperature 97.8 F Temperature Source Oral Pulse Rate 62 Respiratory Rate 18 Blood Pressure 158/74 H Blood Pressure Mean 102 Pulse Ox 95 Oxygen Delivery Method Room Air Positive well nourished and well developed General Appearance ED: well developed Eyes PERRL and EOMs intact bilaterally Neck supple Resp normal respiratory effort and clear to auscultation bilaterally Cardio regular rate and regular rhythm Extremity Extremity Narrative: Right upper extremity is neurovascularly intact. Capillary refill is less than 3 seconds to the digits of his right hand. There is no discoloration or ecchymosis or soft tissue swelling. No paresthesia noted. Remainder of the exam is normal Neuro oriented x3 and CN's II-XII intact bilaterally Sensorium / Orientation: alert Psych mental status grossly normal Skin no rashes or lesions noted MDM MDM MDM Narrative Medical decision making narrative: Patient presented to the ER with report of increased pain in the right forearm but no repeat trauma. By exam he does not have signs of compartment syndrome or decreased blood flow. Repeat x-ray was obtained secondary to his report of increased pain. This showed increased angulation deformity consistent with his report of pain in the fracture rubbing against the cast. At this time I do not feel there is need to perform a bivalve we will remove the cast as the increased angulation change from 10 to 18% which is minimal and he has no signs of decreased blood flow. Therefore patient will follow-up with orthopedics to discuss need for possible manipulation or repeat casting but at this time as there is no signs of compartment syndrome or neurovascular compromise he can be discharged home. Radiography Diagnostic Testing: Clinical Impression(s) from Imaging Studies Forearm X-Ray 09/26/22 00:01 IMPRESSION: Mild increased angulation deformity nondisplaced fracture distal shaft right ulna. Electronically Signed: Pino Quinn MD at 0:31 EST , X-ray of the right forearm as interpreted by the emergency medicine physician reveals mild increased angulation deformity to the distal ulna fracture Discharge Plan Triage Chief Complaint: Upper Extremity Injury ED Provider: Gary Soriano Dx/Rx/DC Orders Clinical Impression: Forearm fracture Instructions: ED Fracture, Upper Extremity Prescriptions: No Action cyanocobalamin (vitamin B-12) 500 MCG tablet 1,000 mcg PO DAILY@0800 omeprazole 20 MG capsule 20 mg PO DAILY tamsulosin 0.4 MG capsule 0.4 mg PO DAILY Label Comments: take 1 capsule by mouth at bedtime cholecalciferol (vitamin D3) 1,000 UNIT tablet 1,000 unit PO DAILY hydrocodone-acetaminophen 5-325 mg tablet 1 tab PO Q6H PRN (Reason: pain) 3 Days Qty: 12 0RF bupropion HCl 75 mg tablet 75 - 150 mg PO DAILY Label Comments: take 1 to 2 tablets by mouth every morning Primary Care Provider: Pino Egan Referrals: Jorje Armas DO [Med Staff - Active Staff] - Pino Egan DO [Primary Care Provider] - Activity Restrictions/Additional Instructions: Please follow-up with orthopedic surgeon to inform them of the increased angulation to your fracture and discuss further treatment options or recasting if necessary and return to the ER should you have any further concerns Disposition Disposition: Home, Self Care Discharge Date/Time: 09/27/22 00:57
== END 2022-09-27 00:57 | disposition home or self-care (01) ==
PROVIDERS: Emergency Provider Emergency Medicine; PCP Family Medicine; Visit Provider Emergency Medicine
DX: S52.201A Unspecified fracture of shaft of right ulna, initial encounter for closed fracture (principal); K21.9 Gastro-esophageal reflux disease without esophagitis; N40.0 Benign prostatic hyperplasia without lower urinary tract symptoms; Z79.899 Other long term (current) drug therapy; X58.XXXA Exposure to other specified factors, initial encounter
CPT/HCPCS: 73090; 99282

== ENCOUNTER 2022-09-27 09:21 | Emergency (ER) | payer MEDICARE, OTHER, SELFPAY ==
[2022-09-27 09:21] VITALS: BP 153/78; PULSE 71; RESP 16; TEMP 36.1; O2SAT 97; BMI 29.8
[2022-09-27 12:20] VITALS: RESP 16
--- NOTE | 2022-09-27 12:28 | EX.ED.UPPERE ---
HPI History of Present Illness Chief Complaint: Upper Extremity Injury Narrative Narrative: Patient is a 77-year-old male who comes in for reevaluation to his right arm. Patient is left-hand dominant, patient was cutting tree branches on 09/24/2022 patient was diagnosed with a distal ulna, when a branch fell on his right arm. Patient was seen here on September 24, 2022, patient was diagnosed with a distal ulnar fracture. Patient was placed in a splint at that time, and did follow-up with orthopedics at [facility]. He was placed in a hard splint, patient states that since that hard splint has been applied, he has rubbing to the area of the ulna where it is fractured. He was told to come the [facility] department for reevaluation, get the hard cast cut off as well as a new splint placed. [facility] Medical History BPH (benign prostatic hyperplasia) Depression GERD (gastroesophageal reflux disease) Home Medications cyanocobalamin (vitamin B-12) 500 mcg tablet 1,000 mcg PO DAILY@0800 11/02/17 [History Last Taken 05/29/20] omeprazole 20 mg capsule,delayed release 20 mg PO DAILY 11/02/17 [History Last Taken 05/29/20] cholecalciferol (vitamin D3) 25 mcg (1,000 unit) tablet 1,000 unit PO DAILY SUPPLEMENT 05/30/20 [History Last Taken 05/29/20] tamsulosin 0.4 mg capsule 0.4 mg PO DAILY 05/30/20 [History Last Taken 05/29/20] bupropion HCl 75 mg tablet 75 - 150 mg PO DAILY 09/24/22 [History Last Taken Unknown] hydrocodone-acetaminophen 5-325mg 5mg-325mg 1 tab PO Q6H PRN pain 3 days #12 tabs 09/24/22 [Rx Last Taken Unknown] Allergy/AdvReac Type Severity Reaction Status Date / Time meperidine HCl [From Demerol] Allergy Anaphylaxis Verified 09/24/22 15:52 Family History Mother Breast cancer CAD (coronary artery disease) CVA (cerebral vascular accident) Father CVA (cerebral vascular accident) Son Breast cancer Surgical History h/o carpal tunnel release H/O knee surgery H/O rhinoplasty Social History Smoking Status: Never smoker alcohol intake: current alcohol intake frequency: holidays/special occasions only ROS ROS ED ROS Narrative Constitutional: Negative for fever, chills, weight loss, weakness Eyes: Negative for vision loss, vision change, double vision ENT: Negative for any sore throat, ear pain, congestion Cardiovascular: Negative for any chest pain, tightness, palpitations Respiratory: Negative for any cough, sputum production, hemoptysis, dyspnea, dyspnea on exertion, orthopnea Gastrointestinal: Negative for any abdominal pain, nausea, vomiting, diarrhea, constipation, blood in stool, blood in vomit : Negative for any urinary frequency, dysuria, retention, blood in urine Muscle skeletal: Negative for any muscle joint pain, stiffness, myalgias, arthralgias, neck pain, back pain. Positive for right arm pain Neurological: Negative for any headache, syncope, numbness or tingling, dizziness Skin: Negative for any rashes, lumps, itching, abrasions, lacerations Psychiatric: Negative for any depression, anxiety, stress, suicidal ideation, homicidal ideation Hematologic: Negative for any easy bruising, excessive bruising, easy bleeding Allergies: Negative for any eczema, hives, rash EXAM Physical Exam Narrative Exam Narrative: Vital signs reviewed. Patient is generally feeling well. HEET: Head normocephalic atraumatic, TMs clear bilaterally. Posterior pharynx is clear, moist mucous membranes. Nares clear bilaterally. Neck: Supple with no lymphadenopathy or tenderness. No signs of meningismus, negative jolt sign. Cardiac: Regular rate and rhythm no murmurs gallops or rubs, equal peripheral pulses bilaterally. Respiratory: Lungs clear to auscultation bilaterally. No chest tenderness. Abdomen: Soft, nontender, nondistended. No abdominal bruit or pulsatile masses. No hepatosplenomegaly Extremities: No peripheral edema, no signs of gross trauma or deformity. Active full range of motion of all extremities. Patient does have the right arm and a short arm hard splint. No neurological focal deficits. Patient is moving finger without any difficulty. Cap refill less than 3 seconds. Neuro: Cranial nerves II through XII intact, no focal neurological deficits. Skin: Clean dry and intact with no rash, purpura, petechiae, vesicles or pustules. Backs/flank: No CVA tenderness, no midline spinal tenderness, no deformity. Psych: Normal mood and affect. No SI, HI or acute psychosis. Const Vital Signs: 09/27/22 09:21 Temperature 96.9 F L Temperature Source Temporal Pulse Rate 71 Respiratory Rate 16 Blood Pressure 153/78 H Blood Pressure Mean 103 Pulse Ox 97 Oxygen Delivery Method Room Air [facility] Treatment and Re-Evaluation Narrative: Patient appears well, patient appears nontoxic, vital signs are stable. Patient presents to the emergency department with complaints of a fracture that occurred on 09/24/2022, and is here for a new cast secondary to rubbing of the hard cast placed on by orthopedics. Patient did have the cast removed. Skin around the area of the break did not have any breakdown. There is slight redness from the cell however no skin breakdown. Compartments appear soft. +2 radial pulse. No neurological focal deficit. Patient did have some pain around the area of the fracture however there is minimal swelling, minimal bruising. I did look at both x-rays of the forearm from both 09/24/2022 and 09/26/2022. There was slight movement of the fracture, however nothing broke the skin, patient is neurovascular intact. We were able to place the patient in a short arm AP splint. Patient tolerated the splinting well. He has plenty of medication at home. After splint applied, patient was able to move his fingers, had no neurological focal deficits. [employer] refill within 3 seconds. Patient will follow-up closely with orthopedics on Thursday. He has appropriate pain medicine at home. He was told to ice, elevate. His was in the room as well, both given discharge instructions and return precautions. Stable for discharge. Discharge Plan Triage Chief Complaint: Upper Extremity Injury ED Midlevel Provider: Pedro Zamora ED Provider: Elliot Redd Dx/Rx/DC Orders Clinical Impression: Forearm fracture Instructions: ED Fracture, Upper Extremity Prescriptions: No Action cyanocobalamin (vitamin B-12) 500 MCG tablet 1,000 mcg PO DAILY@0800 omeprazole 20 MG capsule 20 mg PO DAILY tamsulosin 0.4 MG capsule 0.4 mg PO DAILY Label Comments: take 1 capsule by mouth at bedtime cholecalciferol (vitamin D3) 1,000 UNIT tablet 1,000 unit PO DAILY hydrocodone-acetaminophen 5-325 mg tablet 1 tab PO Q6H PRN (Reason: pain) 3 Days Qty: 12 0RF bupropion HCl 75 mg tablet 75 - 150 mg PO DAILY Label Comments: take 1 to 2 tablets by mouth every morning Primary Care Provider: Pino Egan Referrals: Jorje Armas DO [Med Staff - Active Staff] - As soon as possible Pino Egan DO [Primary Care Provider] - Activity Restrictions/Additional Instructions: Ice and elevate to decrease pain and swelling. Tylenol for pain. Keep your splint dry and clean. Sling on when you are up and around but off while you are sleeping. Call and follow-up with [facility] Thursday. Disposition Disposition: Home, Self Care
== END 2022-09-27 12:40 | disposition home or self-care (01) ==
PROVIDERS: Emergency Provider Emergency Medicine; PCP Family Medicine; Visit Provider Emergency Medicine
DX: Z46.89 Encounter for fitting and adjustment of other specified devices (principal); N40.0 Benign prostatic hyperplasia without lower urinary tract symptoms; K21.9 Gastro-esophageal reflux disease without esophagitis; F32.A Depression, unspecified; Z79.899 Other long term (current) drug therapy; S52.601D Unspecified fracture of lower end of right ulna, subsequent encounter for closed fracture with routine healing; W22.8XXD Striking against or struck by other objects, subsequent encounter
CPT/HCPCS: 29075; 29125; 99282

== ENCOUNTER → 2022-10-03 | Outpatient (CLI) | payer MEDICARE, OTHER, SELFPAY ==
[2022-10-03 10:20] LABS: Absolute Lymphocyte Count 2.07 X10^3/uL (0.83-4.51); Absolute Neutrophil Count 4.3 X10^3/uL (2.0-7.7); Basophil# 0.07 X10^3/uL; Eosinophil# 0.14 X10^3/uL; Eosinophils% 1.9 % (0-5); Hematocrit 48.7 % (40-54); Hemoglobin 16.3 g/dL (13.0-16.5); Lymphocyte # 2.07 X10^3/ul (0.83-4.51); Lymphocyte % 28.8 % (19-41); Mean Corp Hgb Conc 33.5 g/dL (32-36); Mean Corpuscular Hgb 31.4 pg (27.0-32.0); Mean Corpuscular Volume 93.8 fL (80-94); Mean Platelet Vol. 10.3 fl (6.2-12.0); Monocyte% 8.4 % (0-10); NRBC Flagged by Analyzer 0 % (0-5); Neutrophil # 4.26 X10^3/uL (2.7-7.7); Neutrophil % 59.3 % (47-70); Platelet Count 217 K/mm3 (150-450); RBC Distribution Width CV 12.9 % (11.6-14.6); RBC Distribution Width SD 44.1 fl (35.1-43.9); Red Blood Count 5.19 M/mm3 (4.6-6.2); White Blood Count 7.2 K/mm3 (4.4-11.0)
[2022-10-03 10:52] LABS: ALB/GLOB Ratio 0.9 RATIO (0.9-2.4); AST(SGOT) 29 U/L (15-37); Alanine Aminotransfer ALT/SGPT 34 U/L (16-61); Albumin, Serum 3.7 g/dL (3.2-5.0); Alkaline Phosphatase 72 U/L (45-117); Anion Gap 8 (5-15); BUN 15 mg/dL (7-18); BUN/Creat Ratio 9.4 RATIO (10-20); Calcium,Total 9.1 mg/dL (8.5-10.1); Chloride 107 mmol/L (98-107); Cholesterol 204 mg/dL (200); Creatinine, Serum 1.59 mg/dL (0.70-1.30); EST Glomerular Filtration Rate 45 mL/min (>60); Est Glom Filt Rate - Afr Amer 55 mL/min (>60); Glucose 109 mg/dL (74-106); High Density Lipoprotein 40 mg/dL; Potassium 3.7 mmol/L (3.5-5.1); Protein, Total 7.7 g/dL (6.4-8.2); Sodium Level 141 mmol/L (136-145); T4 Free Direct 0.95 ng/dL (0.76-1.46); Thyroid Stim Hormone (TSH) 2.02 uIU/mL (0.358-3.74); Triglycerides 351 mg/dL; Very Low Density Lipoprotein 70 mg/dL (5-40)
[2022-10-03 11:23] LABS: Vitamin B12 525 pg/mL (211-911); Vitamin D,25 Hydroxy 50.6 ng/mL
== END | disposition home or self-care (01) ==
PROVIDERS: PCP Family Medicine; Referring Provider Family Medicine; Visit Provider Family Medicine
DX: E53.8 Deficiency of other specified B group vitamins (principal); N18.30 Chronic kidney disease, stage 3 unspecified; E55.9 Vitamin D deficiency, unspecified; I12.9 Hypertensive chronic kidney disease with stage 1 through stage 4 chronic kidney disease, or unspecified chronic kidney disease; E78.5 Hyperlipidemia, unspecified
CPT/HCPCS: 36415; 80053; 80061; 82306; 82607; 84439; 84443; 85025

== ENCOUNTER → 2023-01-13 | Outpatient (CLI) | payer MEDICARE, OTHER, SELFPAY ==
--- NOTE | 2023-01-13 12:35 | VDLE_ITS ---
Reason For Study: Rt Lower Leg Pain RIGHT LEFT GSV is normal. CFV is compressible, spontaneous, phasic, CFV is compressible, spontaneous, phasic, competent, and demonstrates normal competent and demonstrates normal augmentation. augmentation. FV is compressible, spontaneous, phasic, competent and demonstrates normal augmentation. POP V is compressible, spontaneous, phasic, competent and demonstrates normal augmentation. T/P Trunk is compressible. RT PerV is compressible. Acute deep vein thrombosis is noted in the distal PTV. It is dilated and NONCOMPRESSIBLE. Procedure This is a venous duplex using B-mode, color flow and spectral Doppler. Exam performed in department. The exam was diagnostic. A preliminary report was called and/or faxed to sultana waldrop and ariadna miller NP. VL/Venous Duplex US, Unilateral Interpretation Summary Acute deep venous thrombosis right distal posterior tibial vein Patent and compressible right great saphenous vein Normal flow patterns left common femoral vein Ordering Physician: Meenu Casarez Referring Physician: Meenu Casarez Performed By: Gaston Russo RVT
== END | disposition home or self-care (01) ==
PROVIDERS: PCP Family Medicine; Referring Provider Physician Assistant; Visit Provider Physician Assistant
DX: M79.661 Pain in right lower leg (principal)
CPT/HCPCS: 93971

== ENCOUNTER → 2023-03-24 | Outpatient (CLI) | payer MEDICARE, OTHER, SELFPAY ==
--- NOTE | 2023-03-24 09:32 | VDLE_ITS ---
Reason For Study: Hx DVT, pre op RIGHT LEFT GSV is normal. CFV is compressible, spontaneous, phasic, CFV is compressible, spontaneous, phasic, competent, and demonstrates normal competent and demonstrates normal augmentation. augmentation. FV is compressible, spontaneous, phasic, competent and demonstrates normal augmentation. POP V is compressible, spontaneous, phasic, competent and demonstrates normal augmentation. T/P Trunk is compressible. PTV is compressible. RT PerV is compressible. Previous PTV DVT has resolved. Procedure This is a venous duplex using B-mode, color flow and spectral Doppler. Exam performed in department. The exam was diagnostic. A preliminary report was called and/or faxed to Andra Sotomayor's office. VL/Venous Duplex US, Unilateral Interpretation Summary There is no evidence of right lower extremity deep vein thrombosis. Right great saphenous vein appears patent and compressible segmentally. Normal flow patterns left common f emoral vein Previous right posterior tibial DVT from January 13, 2023 resolved Ordering Physician: Andra Sotomayor Performed By: Waylon Gallagher RVT
== END | disposition home or self-care (01) ==
LOC: CVS 09:31
PROVIDERS: PCP Family Medicine; Referring Provider Nurse Practitioner Family; Visit Provider Nurse Practitioner Family
DX: Z86.718 Personal history of other venous thrombosis and embolism (principal)
CPT/HCPCS: 93971

== ENCOUNTER → 2023-03-30 | Outpatient (CLI) | payer MEDICARE, OTHER, SELFPAY ==
[2023-03-30 12:16] LABS: Absolute Lymphocyte Count 1.74 X10^3/uL (0.83-4.51); Absolute Neutrophil Count 3.3 X10^3/uL (2.0-7.7); Basophil# 0.05 X10^3/uL; Basophil% 0.9 % (0-1); Eosinophil# 0.07 X10^3/uL; Eosinophils% 1.2 % (0-5); Hematocrit 45.4 % (40-54); Hemoglobin 15.4 g/dL (13.0-16.5); Lymphocyte # 1.74 X10^3/ul (0.83-4.51); Lymphocyte % 30.5 % (19-41); Mean Corp Hgb Conc 33.9 g/dL (32-36); Mean Corpuscular Hgb 31.8 pg (27.0-32.0); Mean Corpuscular Volume 93.6 fL (80-94); Mean Platelet Vol. 10.4 fl (6.2-12.0); Monocyte# 0.51 X10^3/uL; Monocyte% 8.9 % (0-10); NRBC Flagged by Analyzer 0 % (0-5); Neutrophil # 3.31 X10^3/uL (2.7-7.7); Neutrophil % 58.1 % (47-70); Platelet Count 232 K/mm3 (150-450); RBC Distribution Width CV 13.1 % (11.6-14.6); RBC Distribution Width SD 44.8 fl (35.1-43.9); Red Blood Count 4.85 M/mm3 (4.6-6.2); White Blood Count 5.7 K/mm3 (4.4-11.0)
[2023-03-30 12:59] LABS: Vitamin B12 409 pg/mL (211-911); Vitamin D,25 Hydroxy 36.2 ng/mL
[2023-03-30 13:33] LABS: ALB/GLOB Ratio 0.9 RATIO (0.9-2.4); AST(SGOT) 27 U/L (15-37); Alanine Aminotransfer ALT/SGPT 34 U/L (16-61); Albumin, Serum 3.7 g/dL (3.2-5.0); Alkaline Phosphatase 81 U/L (45-117); Anion Gap 7 (5-15); BUN 12 mg/dL (7-18); BUN/Creat Ratio 8.1 RATIO (10-20); Calcium,Total 8.7 mg/dL (8.5-10.1); Chloride 108 mmol/L (98-107); Creatinine, Serum 1.49 mg/dL (0.70-1.30); EST Glomerular Filtration Rate 49 mL/min (>60); Est Glom Filt Rate - Afr Amer 59 mL/min (>60); Glucose 89 mg/dL (74-106); PSA,Total - Annual Screen 4.27 ng/mL (0.00-4.00); Potassium 3.7 mmol/L (3.5-5.1); Protein, Total 7.7 g/dL (6.4-8.2); Sodium Level 139 mmol/L (136-145)
== END | disposition home or self-care (01) ==
LOC: BFHLAB 10:58
PROVIDERS: PCP Nurse Practitioner Family; Referring Provider Nurse Practitioner Family; Visit Provider Nurse Practitioner Family
DX: E53.8 Deficiency of other specified B group vitamins (principal); E55.9 Vitamin D deficiency, unspecified; R03.0 Elevated blood-pressure reading, without diagnosis of hypertension; N18.9 Chronic kidney disease, unspecified; R39.12 Poor urinary stream; Z12.5 Encounter for screening for malignant neoplasm of prostate
CPT/HCPCS: 36415; 80053; 82306; 82607; 84153; 85025; G0103

== ENCOUNTER → 2023-04-10 | Outpatient (CLI) | payer MEDICARE, OTHER, SELFPAY | END | disposition home or self-care (01) | LOC: SL 20:23 | PROVIDERS: PCP Nurse Practitioner Family; Referring Provider Nurse Practitioner Family; Visit Provider Nurse Practitioner Family | DX: G47.33 Obstructive sleep apnea (adult) (pediatric) (principal) | CPT/HCPCS: 95811 ==

== ENCOUNTER → 2023-06-29 | Outpatient (CLI) | payer MEDICARE, OTHER, SELFPAY ==
[2023-06-29 15:31] LABS: Absolute Lymphocyte Count 1.94 X10^3/uL (0.83-4.51); Absolute Neutrophil Count 5.3 X10^3/uL (2.0-7.7); Basophil# 0.04 X10^3/uL; Basophil% 0.5 % (0-1); Eosinophils% 1.2 % (0-5); Hematocrit 44.9 % (40-54); Hemoglobin 14.8 g/dL (13.0-16.5); Lymphocyte # 1.94 X10^3/ul (0.83-4.51); Lymphocyte % 24.1 % (19-41); Mean Corpuscular Hgb 31.6 pg (27.0-32.0); Mean Corpuscular Volume 95.7 fL (80-94); Mean Platelet Vol. 10.7 fl (6.2-12.0); Monocyte# 0.69 X10^3/uL; Monocyte% 8.6 % (0-10); NRBC Flagged by Analyzer 0 % (0-5); Neutrophil # 5.25 X10^3/uL (2.7-7.7); Neutrophil % 65.2 % (47-70); Platelet Count 219 K/mm3 (150-450); RBC Distribution Width CV 13.2 % (11.6-14.6); RBC Distribution Width SD 46.3 fl (35.1-43.9); Red Blood Count 4.69 M/mm3 (4.6-6.2); White Blood Count 8.1 K/mm3 (4.4-11.0)
[2023-06-29 15:50] LABS: CPK Total, Creatine Kinase 134 U/L (39-308); T4 Free Direct 0.83 ng/dL (0.76-1.46); Thyroid Stim Hormone (TSH) 1.63 uIU/mL (0.358-3.74)
== END | disposition home or self-care (01) ==
LOC: BFHLAB 13:29
PROVIDERS: PCP Nurse Practitioner Family; Referring Provider Nurse Practitioner Family; Visit Provider Nurse Practitioner Family
DX: R53.83 Other fatigue (principal)
CPT/HCPCS: 36415; 82550; 84439; 84443; 85025

== ENCOUNTER → 2023-09-28 | Outpatient (CLI) | payer MEDICARE, OTHER, SELFPAY ==
[2023-09-28 12:56] LABS: Anion Gap 6 (5-15); BUN 13 mg/dL (7-18); BUN/Creat Ratio 7.9 RATIO (10-20); Calcium,Total 9.2 mg/dL (8.5-10.1); Chloride 107 mmol/L (98-107); Creatinine, Serum 1.65 mg/dL (0.70-1.30); EST Glomerular Filtration Rate 43 mL/min (>60); Est Glom Filt Rate - Afr Amer 52 mL/min (>60); Glucose 102 mg/dL (74-106); Sodium Level 139 mmol/L (136-145)
== END | disposition home or self-care (01) ==
LOC: BFHLAB 10:35
PROVIDERS: PCP Family Medicine; Visit Provider Family Medicine
DX: N18.31 Chronic kidney disease, stage 3a (principal)
CPT/HCPCS: 36415; 80048

== ENCOUNTER → 2023-12-16 | Outpatient (CLI) | payer MEDICARE, OTHER, SELFPAY ==
[2023-12-16 12:13] LABS: Absolute Lymphocyte Count 1.57 X10^3/uL (0.83-4.51); Absolute Neutrophil Count 7.3 X10^3/uL (2.0-7.7); Basophil# 0.05 X10^3/uL; Basophil% 0.5 % (0-1); Eosinophil# 0.09 X10^3/uL; Eosinophils% 0.9 % (0-5); Hematocrit 43.7 % (40-54); Hemoglobin 14.4 g/dL (13.0-16.5); Lymphocyte # 1.57 X10^3/ul (0.83-4.51); Lymphocyte % 15.7 % (19-41); Mean Platelet Vol. 10.3 fl (6.2-12.0); Monocyte# 0.97 X10^3/uL; Monocyte% 9.7 % (0-10); NRBC Flagged by Analyzer 0 % (0-5); Neutrophil % 72.8 % (47-70); Platelet Count 209 K/mm3 (150-450); RBC Distribution Width CV 13.2 % (11.6-14.6); RBC Distribution Width SD 45.2 fl (35.1-43.9); Red Blood Count 4.65 M/mm3 (4.6-6.2)
[2023-12-16 12:19] LABS: Creatinine, Serum 1.51 mg/dL (0.70-1.30); EST Glomerular Filtration Rate 48 mL/min (>60); Est Glom Filt Rate - Afr Amer 58 mL/min (>60)
[2023-12-16 13:14] LABS: D-Dimer Quantitative (DVT/PE) 4.28 FEU/ug/m (0.27-0.49)
== END | disposition home or self-care (01) ==
LOC: BFHLAB 10:26
PROVIDERS: PCP Family Medicine; Referring Provider Family Medicine; Visit Provider Family Medicine
DX: R05.9 Cough, unspecified (principal); N18.30 Chronic kidney disease, stage 3 unspecified; R06.00 Dyspnea, unspecified
CPT/HCPCS: 36415; 82565; 85025; 85379

== ENCOUNTER → 2023-12-29 | Outpatient (CLI) | payer MEDICARE, OTHER, SELFPAY ==
--- NOTE | 2023-12-29 07:08 | CT_ITS ---
We are attempting to reach an attending provider to discuss findings. An addendum with communication details will be sent when the communication is complete. STUDY: CTA CHEST REASON FOR EXAM: Male, 78 years old patient with cough, dyspnea on exertion and positive D Dimer. RADIATION DOSAGE (If Supplied By Facility): CTDIvol = ( 12.33 ) mGy, DLP = ( 519.78 ) mGycm TECHNIQUE: The examination was performed with the intravenous administration of 100 mL of IV Isovue-370. Post-processing of the angiographic images was performed, with multiplanar reformation and 3D reconstruction. Individualized dose optimization techniques were used for this CT. COMPARISON: None. FINDINGS: Thyroid appears atrophic. Normal enhancement of the main pulmonary artery and right and left pulmonary arteries. There are pulmonary emboli to lobar and segmental branches of the right lower lobe. There are also segmental pulmonary emboli to the right upper lobe. There are segmental pulmonary emboli to left lower lobe and lingula. There is evidence for right heart strain. There is atherosclerotic calcification of the aortic arch with tortuosity. There is no demonstrated aortic dissection. Normal heart and pericardium. Normal mediastinum. Normal hilar regions. Normal visualized trachea and bronchi. The lungs are well expanded. There is groundglass attenuation within the left lower lobe that may represent sequela pulmonary infarcts. There is also patchy right middle lobe airspace consolidation abutting the right lateral chest wall. Normal pleura. Normal chest wall structures. There are degenerative changes of thoracic spine. Normal visualized upper abdomen. CT/CTA Chest W/WO Contrast IMPRESSION: Bilateral segmental pulmonary emboli and lobar pulmonary embolus to the right lower lobe with evidence for right heart strain. Electronically Signed: Mary Wilson MD at 7:54 EDT Reading Location ID and State: [facility] / [place] , Service support ,
== END | disposition home or self-care (01) ==
LOC: CT 07:07
PROVIDERS: PCP Family Medicine; Referring Provider Family Medicine; Visit Provider Family Medicine
DX: R05.9 Cough, unspecified (principal); R06.00 Dyspnea, unspecified
CPT/HCPCS: 71275; Q9967

== ENCOUNTER → 2024-05-16 | Outpatient (CLI) | payer MEDICARE, OTHER, SELFPAY ==
[2024-05-16 12:10] LABS: Absolute Lymphocyte Count 2.13 X10^3/uL (0.83-4.51); Absolute Neutrophil Count 3.7 X10^3/uL (2.0-7.7); Basophil# 0.05 X10^3/uL; Basophil% 0.8 % (0-1); Eosinophil# 0.06 X10^3/uL; Eosinophils% 0.9 % (0-5); Hematocrit 42.3 % (40-54); Hemoglobin 14.3 g/dL (13.0-16.5); Lymphocyte # 2.13 X10^3/ul (0.83-4.51); Lymphocyte % 33.1 % (19-41); Mean Corp Hgb Conc 33.8 g/dL (32-36); Mean Corpuscular Hgb 31.5 pg (27.0-32.0); Mean Corpuscular Volume 93.2 fL (80-94); Mean Platelet Vol. 10.3 fl (6.2-12.0); Monocyte# 0.48 X10^3/uL; Monocyte% 7.5 % (0-10); NRBC Flagged by Analyzer 0 % (0-5); Neutrophil # 3.69 X10^3/uL (2.7-7.7); Neutrophil % 57.4 % (47-70); Platelet Count 232 K/mm3 (150-450); RBC Distribution Width CV 14.1 % (11.6-14.6); RBC Distribution Width SD 47.8 fl (35.1-43.9); Red Blood Count 4.54 M/mm3 (4.6-6.2); White Blood Count 6.4 K/mm3 (4.4-11.0)
[2024-05-16 13:27] LABS: ALB/GLOB Ratio 0.9 RATIO (0.9-2.4); AST(SGOT) 27 U/L (15-37); Alanine Aminotransfer ALT/SGPT 33 U/L (16-61); Albumin, Serum 3.6 g/dL (3.2-5.0); Alkaline Phosphatase 75 U/L (45-117); Anion Gap 8 (5-15); BUN 16 mg/dL (7-18); BUN/Creat Ratio 10.4 RATIO (10-20); Chloride 108 mmol/L (98-107); Cholesterol 195 mg/dL (200); Creatinine, Serum 1.54 mg/dL (0.70-1.30); EST Glomerular Filtration Rate 47 mL/min (>60); Est Glom Filt Rate - Afr Amer 57 mL/min (>60); Globulin 3.9 g/dL (2.2-4.2); Glucose 93 mg/dL (74-106); High Density Lipoprotein 39 mg/dL; PSA,Total - Annual Screen 5.41 ng/mL (0.00-4.00); Potassium 3.9 mmol/L (3.5-5.1); Protein, Total 7.5 g/dL (6.4-8.2); Sodium Level 140 mmol/L (136-145); Triglycerides 291 mg/dL; Uric Acid 8.4 mg/dL (3.5-7.2); Very Low Density Lipoprotein 58 mg/dL (5-40)
== END | disposition home or self-care (01) ==
LOC: BFHLAB 09:48
PROVIDERS: PCP Family Medicine; Referring Provider Family Medicine; Visit Provider Family Medicine
DX: Z51.81 Encounter for therapeutic drug level monitoring (principal); N18.31 Chronic kidney disease, stage 3a; M10.9 Gout, unspecified; Z12.5 Encounter for screening for malignant neoplasm of prostate; E66.9 Obesity, unspecified
CPT/HCPCS: 36415; 80053; 80061; 84153; 84550; 85025; G0103

== ENCOUNTER → 2024-08-11 | Outpatient (CLI) | payer MEDICARE, OTHER, SELFPAY ==
--- NOTE | 2024-08-11 13:58 | RAD_ITS ---
STUDY: X-RAY CHEST REASON FOR EXAM: Male, 79 years old. COUGH TECHNIQUE: PA and lateral views of the chest. COMPARISON: 05/30/2020 FINDINGS: The lungs are clear and expanded. There is no demonstrated pleural abnormality. Normal size heart. Normal mediastinum and whit. Normal visualized pulmonary arteries. Normal visualized aortic arch and descending thoracic aorta. Normal visualized thoracic spine. Normal visualized ribs, clavicles, and shoulders. There is no demonstrated abnormality of the visualized soft tissue structures of the upper abdomen. RAD/Chest PA and Lateral IMPRESSION: Normal x-ray examination of the chest. Electronically Signed: Sixto Torres MD at 14:37 EST ,
== END | disposition home or self-care (01) ==
PROVIDERS: PCP Family Medicine; Referring Provider Family Medicine; Visit Provider Family Medicine
DX: J40 Bronchitis, not specified as acute or chronic (principal); Z86.711 Personal history of pulmonary embolism
CPT/HCPCS: 71046

== ENCOUNTER → 2024-08-23 | Outpatient (CLI) | payer MEDICARE, OTHER, SELFPAY | END | disposition home or self-care (01) | LOC: LABSPEC 09:10 | PROVIDERS: PCP Family Medicine; Visit Provider Family Medicine | DX: R05.9 Cough, unspecified (principal) | CPT/HCPCS: 87070; 87205 ==

== ENCOUNTER → 2024-11-14 | Outpatient (CLI) | payer MEDICARE, OTHER, SELFPAY ==
[2024-11-14 10:41] LABS: Absolute Lymphocyte Count 1.96 X10^3/uL (0.83-4.51); Absolute Neutrophil Count 3.2 X10^3/uL (2.0-7.7); Basophil# 0.06 X10^3/uL; Eosinophil# 0.08 X10^3/uL; Eosinophils% 1.4 % (0-5); Hematocrit 41.4 % (40-54); Hemoglobin 14.1 g/dL (13.0-16.5); Lymphocyte # 1.96 X10^3/ul (0.83-4.51); Lymphocyte % 33.3 % (19-41); Mean Corp Hgb Conc 34.1 g/dL (32-36); Mean Corpuscular Hgb 31.9 pg (27.0-32.0); Mean Corpuscular Volume 93.7 fL (80-94); Mean Platelet Vol. 9.9 fl (6.2-12.0); Monocyte# 0.57 X10^3/uL; Monocyte% 9.7 % (0-10); NRBC Flagged by Analyzer 0 % (0-5); Neutrophil # 3.21 X10^3/uL (2.7-7.7); Neutrophil % 54.4 % (47-70); Platelet Count 198 K/mm3 (150-450); RBC Distribution Width CV 12.7 % (11.6-14.6); RBC Distribution Width SD 43.9 fl (35.1-43.9); Red Blood Count 4.42 M/mm3 (4.6-6.2); White Blood Count 5.9 K/mm3 (4.4-11.0)
[2024-11-14 11:22] LABS: Anion Gap 11 (5-15); BUN 10 mg/dL (4-19); Calcium,Total 9.3 mg/dL (7.6-11.0); Carbon Dioxide 22.6 mmol/L (21.0-32.0); Chloride 105 mmol/L (98-108); Creatinine, Serum 1.42 mg/dL (0.70-1.20); EST Glomerular Filtration Rate 51 (>60); Glucose 95 mg/dL (70-99); Potassium 4.3 mmol/L (3.3-5.1); Sodium Level 138 mmol/L (133-145)
[2024-11-14 11:53] LABS: Uric Acid 5.7 mg/dL (3.5-7.2)
== END | disposition home or self-care (01) ==
LOC: LAB 10:16
PROVIDERS: PCP Family Medicine; Referring Provider Family Medicine; Visit Provider Family Medicine
DX: Z51.81 Encounter for therapeutic drug level monitoring (principal); N18.31 Chronic kidney disease, stage 3a; M10.9 Gout, unspecified
CPT/HCPCS: 36415; 80048; 84550; 85025

== ENCOUNTER → 2025-05-18 | Outpatient (CLI) | payer MEDICARE, OTHER, SELFPAY ==
[2025-05-18 11:41] LABS: Hematocrit 44.2 % (40-54); Hemoglobin 15.3 g/dL (13.0-16.5); Immature Granulocytes Count 0.020 X10^3/uL (0.0-0.0); Mean Corp Hgb Conc 34.6 g/dL (32-36); Mean Corpuscular Volume 93.1 fL (80-94); Mean Platelet Vol. 9.8 fl (6.2-12.0); NRBC Flagged by Analyzer 0 % (0-5); Platelet Count 194 K/mm3 (150-450); RBC Distribution Width CV 14.0 % (11.6-14.6); RBC Distribution Width SD 48.2 fl (35.1-43.9); Red Blood Count 4.75 M/mm3 (4.6-6.2); White Blood Count 7.2 K/mm3 (4.4-11.0)
[2025-05-18 12:19] LABS: AST(SGOT) 29 U/L (<=37); Alanine Aminotransfer ALT/SGPT 25 U/L (<=46); Albumin, Serum 4.2 g/dL (3.4-4.8); Alkaline Phosphatase 87 U/L (40-129); Anion Gap 13 (5-15); BUN 10 mg/dL (4-19); BUN/Creat Ratio 7.7 RATIO (10-20); Calcium,Total 9.0 mg/dL (7.6-11.0); Carbon Dioxide 23.4 mmol/L (21.0-32.0); Chloride 104 mmol/L (98-108); Globulin 2.8 g/dL (2.2-4.2); Glucose 90 mg/dL (70-99); PSA,Total - Annual Screen 5.32 ng/mL (0.02-4.00); Potassium 4.1 mmol/L (3.3-5.1); Uric Acid 5.4 mg/dL (3.5-7.2)
== END | disposition home or self-care (01) ==
LOC: LAB 11:16
PROVIDERS: PCP Family Medicine; Referring Provider Family Medicine; Visit Provider Family Medicine
DX: N18.31 Chronic kidney disease, stage 3a (principal); Z51.81 Encounter for therapeutic drug level monitoring; M10.9 Gout, unspecified; Z12.5 Encounter for screening for malignant neoplasm of prostate
CPT/HCPCS: 36415; 80053; 84153; 84550; 85025; G0103

== ENCOUNTER → 2025-06-14 | Outpatient (CLI) | payer MEDICARE, OTHER, SELFPAY ==
--- NOTE | 2025-06-14 14:41 | LES_PTH ---
PATIENT: KADIE PRADHAN LOC: ANGI U#:[id number] AGE/SX: 80/M ROOM: RE06/14/[address]: Dr. Pino Egan DO : 1945 BED: DIS: 06/14/2025 SPEC #: [id number] RECD: 06/14/25 15:36 STATUS: MAGNO KEREN #: [id number] OTTO: 06/14/25 14:[address]: Pino Egan DEPT: SURGICAL PATHOLOGY RECD BY: Kade Florentino Tissues: A - Skin of back, NOS Procedures: Surgery Specimen Level IV HEADER OPERATION: Punch biopsy of back lesion PRE-OP DIAGNOSIS: Scaly, itchy lesion, rule out nodular basal cell carcinoma TISSUE SUBMITTED: A- 3mm punch biopsy - lower back MICROSCOPIC DIAGNOSIS A. Right lower back, skin punch biopsy: MICROSCOPIC DESCRIPTION Slides are reviewed. GROSS DESCRIPTION A. Received in formalin labeled with the patient's name and date of . Designated as R lower back is a 0.3 x 0.3 cm hernández skin punch excised to a depth of 0.2 cm. The resection margin is inked green. Entirely submitted in 1 cassette. NV 06/15/2025 CPT:45314
== END | disposition home or self-care (01) ==
LOC: LABSPEC 15:46
PROVIDERS: PCP Family Medicine; Referring Provider Family Medicine; Visit Provider Family Medicine
DX: Z04.89 Encounter for examination and observation for other specified reasons (principal)
CPT/HCPCS: 88305

== ENCOUNTER → 2025-07-10 | Outpatient (CLI) | payer MEDICARE, OTHER, SELFPAY ==
--- NOTE | 2025-07-10 10:47 | RAD_ITS ---
PROCEDURE: SHOULDER MIN 2 VIEWS 07/10/2025 REASON FOR EXAM: LEFT SHOULDER PAIN AND ARM PAIN. Pain for 2-3 months. No known injury. Had tendonitis shot in November. TECHNIQUE: Procedure Code: RADSH Modality: DX Procedure: SHOULDER MIN 2 VIEWS Laterality: Left COMPARISON: 02/18/2019 FINDINGS: BONES: No acute fracture or focal osseous lesion. JOINTS: No dislocation. Mild degenerative changes of the glenohumeral joint. SOFT TISSUES: The soft tissues are unremarkable. RAD/Shoulder min 2 Views IMPRESSION: 1. No acute findings. 2. Mild degenerative changes. Reading Location: [id number]
== END | disposition home or self-care (01) ==
LOC: RAD 10:44
PROVIDERS: PCP Family Medicine; Referring Provider Family Medicine; Visit Provider Family Medicine
DX: M25.512 Pain in left shoulder (principal)
CPT/HCPCS: 73030